=== PATIENT | male | born 1945 | race Caucasian/White ===

== ENCOUNTER 2017-06-05 12:16 | Inpatient (IN) | payer MEDICARE, BC ==
[2017-06-05] MEDS ORDERED: Ondansetron 4 MG Tab.DIS PO PRN (13:03)
[2017-06-05] MEDS ORDERED: cefTRIAXone 1 GM in Sodium Chloride 0.9% 100 ML IV SCH (13:15)
[2017-06-05] MEDS ORDERED: Sodium Chloride 0.9% 10 ML Syringe FLUSH PRN (13:30)
[2017-06-05] MEDS: Sodium Chloride 0.9% 1,000 ML IV SCH ×2 (13:32→21:28)
[2017-06-05] MEDS: Ondansetron 4 MG/2 ML SDV IVPUSH PRN ×2 (13:33→17:43)
[2017-06-05] MEDS: cefTRIAXone 1,000 MG VIAL IV SCH (14:06)
[2017-06-05] MEDS: Insulin Detemir 100 Units/ML 3 ML Pen SUBCUT SCH (15:12)
--- NOTE | 2017-06-05 17:45 | PCM.HP ---
H&P History of Present Illness - General Date of Service: 06/05/17 Admit Problem/Dx: Admission Diagnosis/Problem Admission Diagnosis/Problem Pyelonephritis Source of Information: Patient, Family History Limitations: Reports: Other (mildly confused) - History of Present Illness Initial Comments - Free Text/Narative: this is a 72-year-old male patient that his says he is just not felt right for the last month. He does have a history of urinary incontinence but today he started having fevers, chills, left back pain and confusion. Is brought to the clinic and found to have positive urine pyelonephritis. He has issue diabetes, hypertension and is sent here for admission. She says of vomiting but no diarrhea. He has no abdominal pain, dysuria, pyuria, hematuria. He has some a little bit rhinorrheaof cough but no shortness of breath. - Related Data Allergies/Adverse Reactions: Allergies Allergy/AdvReac Type Severity Reaction Status Date / Time No Known Allergies Allergy Verified 06/05/17 13:10 Home Medications: Home Meds Ascorbate Calcium [Vitamin C] 500 mg PO DAILY 06/05/17 [History] Aspirin [Ecotrin] 325 mg PO DAILY 06/05/17 [History] Cholecalciferol (Vitamin D3) [Vitamin D3] 1,000 unit PO DAILY 06/05/17 [History] FLUoxetine [PROzac] 40 mg PO DAILY 06/05/17 [History] Ferrous Sulfate 325 mg PO BID 06/05/17 [History] Insulin Aspart [NovoLOG] 20 unit SUBCUT WITHBREAKFAST 06/05/17 [History] Insulin Aspart [NovoLOG] 30 units SUBCUT WITHDINNER 06/05/17 [History] Insulin Glargine,Hum.Rec.Anlog [Lantus Solostar] 60 units SUBCUT DAILY 06/05/17 [History] Metoprolol Succinate [Toprol XL] 25 mg PO DAILY 06/05/17 [History] Multivitamin [Daily Josee] 1 tab PO DAILY 06/05/17 [History] Oxybutynin [Oxybutynin ER] 10 mg PO DAILY 06/05/17 [History] atorvaSTATin [Lipitor] 40 mg PO DAILY 06/05/17 [History] buPROPion HCl [Wellbutrin Xl] 150 mg PO DAILY 06/05/17 [History] metFORMIN [Glucophage] 1,000 mg PO BID 06/05/17 [History] rOPINIRole [Requip] 2 mg PO BEDTIME 06/05/17 [History] Past Medical History HEENT History: Reports: None Cardiovascular History: Reports: Bypass, Hypertension Genitourinary History: Reports: Pyelonephritis, UTI, Recurrent Musculoskeletal History: Reports: Other (See Below) Other Musculoskeletal History: Shakiness Endocrine/Metabolic History: Reports: Diabetes, Type I - Past Surgical History Cardiovascular Surgical History: Reports: Coronary Artery Bypass Male Surgical History: Reports: Circumcision Social & Family History - Family History Family Medical History: Noncontributory - Tobacco Use Smoking Status *Q: Never Smoker Second Hand Smoke Exposure: No - Alcohol Use Days Per Week of Alcohol Use: 1 Number of Drinks Per Day: 1 Total Drinks Per Week: 1 - Recreational Drug Use Recreational Drug Use: No H&P Review of Systems - Review of Systems: Review Of Systems: See Below General: Reports: Fever, Chills, Malaise, Weakness, Fatigue. Denies: Weight Gain HEENT: Reports: Rhinitis, Post Nasal Drip. Denies: Ear Pain, Sinus Congestion, Sore Throat, Vertigo, Visual Changes Pulmonary: Reports: Cough. Denies: Shortness of Breath, Sputum, Hemoptysis Cardiovascular: Reports: No Symptoms Gastrointestinal: Reports: Nausea, Vomiting Genitourinary: Reports: Incontinence Musculoskeletal: Reports: No Symptoms Skin: Reports: No Symptoms Psychiatric: Reports: No Symptoms Neurological: Reports: No Symptoms Hematologic/Lymphatic: Reports: No Symptoms Immunologic: Reports: No Symptoms Exam - Exam Exam: See Below - Vital Signs Vital Signs: Last Vital Signs Temp 100 F 06/05/17 15:35 Pulse 88 06/05/17 15:35 Resp 18 06/05/17 15:35 BP 137/82 06/05/17 15:35 Pulse Ox 93 L 06/05/17 15:35 Weight: 301 lb 1.6 oz - Exam General: Alert, Cooperative. No: Oriented, Mild Distress HEENT: Hearing Intact, Mucosa Moist & Ensign, Posterior Pharynx Clear, Pupils Reactive, TMs Clear Neck: Supple, Trachea Midline. No: JVD Lungs: Clear to Auscultation, Normal Respiratory Effort. No: Crackles, Rales, Rhonchi Cardiovascular: Regular Rate, Regular Rhythm, Normal S1, Normal S2. No: Bradycardia, Tachycardia, Systolic Murmur, Diastolic Murmur GI/Abdominal Exam: Normal Bowel Sounds, Soft, Non-Tender, No Organomegaly, No Distention, No Abnormal Bruit, No Mass Back Exam: Normal Inspection, Full Range of Motion. No: CVA Tenderness (R) Extremities: Normal Inspection, Normal Range of Motion, Non-Tender, No Pedal Edema Skin: Warm, Dry, Intact Neurological: Normal Gait Neuro Extensive - Mental Status: Alert, Normal Mood/Affect. No: Oriented x3, Normal Cognition Neuro Extensive - Motor, Sensory, Reflexes: Normal Gait Psychiatric: Alert, Normal Affect, Normal Mood - Patient Data Lab Results Last 24 hrs: Laboratory Results - last 24 hr 06/05/17 06/05/17 Range/Units 14:18 17:19 POC Glucose 291 H 253 H (80-116) mg/dL *Q Meaningful Use (ADM) - VTE *Q VTE Criteria *Q: - Stroke *Q Stroke Criteria *Q: - AMI *Q AMI Criteria *Q: - Problem List (1) Pyelonephritis SNOMED Code(s): 62716716 ICD Code: N12 - TUBULO-INTERSTITIAL NEPHRITIS, NOT SPCF ACUTE OR CHRONIC Status: Acute Current Visit: Yes (2) Kidney disease, chronic, stage III (GFR 30-59 ml/min) SNOMED Code(s): 739434517 ICD Code: N18.3 - CHRONIC KIDNEY DISEASE, STAGE 3 (MODERATE) Status: Acute Current Visit: Yes (3) Diabetes type 2, controlled SNOMED Code(s): 86162138 ICD Code: E11.9 - TYPE 2 DIABETES MELLITUS WITHOUT COMPLICATIONS Status: Acute Current Visit: Yes Qualifiers: Diabetes mellitus complication status: without complication Diabetes mellitus senior living insulin use: with senior living use Qualified Code(s): E11.9 - Type 2 diabetes mellitus without complications; Z79.4 - adjunct faculty 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) use of insulin; Z79.4 - group home (current) use of insulin; Z79.4 - group home ( current) use of insulin; Z79.4 - group home (current) use of insulin Problem List Initiated/Reviewed/Updated: Yes Orders Last 24hrs: Active Orders 24 hr Category Date Time Status Patient Status [ADT] Routine ADT 06/05/17 13:03 Active Patient Status [ADT] Routine ADT 06/05/17 13:30 Active Accu Check [Blood Glucose Check, Bedside] [RC] 0630, Care 06/05/17 13:34 Active 1130,1730,2100 Height and Weight [RC] 06 Care 06/05/17 13:30 Active Intake and Output [RC] 06,14,22 Care 06/05/17 13:31 Active Oxygen Therapy [RC] PRN Care 06/05/17 13:30 Active Up With Assistance [RC] ASDIRECTED Care 06/05/17 13:30 Active VTE/DVT Education [RC] Per Unit Routine Care 06/05/17 13:30 Active Vital Signs [RC] 08,12,16,20,00,04 Care 06/05/17 13:30 Active Consistent Carbohydrate Diet [DIET] Diet 06/05/17 Dinner Active Chest 2V [CR] Routine Exams 06/05/17 13:30 Taken CBC WITH AUTO DIFF [HEME] AM Lab 06/06/17 05:11 Ordered COMPREHENSIVE METABOLIC PN,CMP [CHEM] AM Lab 06/06/17 05:11 Ordered CULTURE BLOOD [BC] Urgent Lab 06/05/17 13:25 Received CULTURE BLOOD [BC] Urgent Lab 06/05/17 13:30 Received Insulin Aspart [NovoLOG] Med 06/05/17 18:00 Active See Protocol SUBCUT TIDMEALS Insulin Detemir [Levemir] Med 06/05/17 13:45 Active 30 unit SUBCUT DAILY Ondansetron [Zofran ODT] Med 06/05/17 13:03 Active 4 mg PO Q4H PRN Ondansetron [Zofran] Med 06/05/17 13:03 Active 4 mg IVPUSH Q4H PRN Sodium Chloride 0.9% [Normal Saline] 1,000 ml Med 06/05/17 13:15 Active IV ASDIRECTED Sodium Chloride 0.9% [Saline Flush] Med 06/05/17 13:30 Active 10 ml FLUSH ASDIRECTED PRN cefTRIAXone [Rocephin] Med 06/05/17 13:15 Active 1,000 mg IV Q24H Blood Culture x2 Reflex Set [OM.PC] Urgent Oth 06/05/17 13:03 Ordered Peripheral IV Insertion Adult [OM.PC] Routine Oth 06/05/17 13:30 Ordered Sequential Compression Device [OM.PC] Per Unit Routine Oth 06/05/17 13:31 Ordered Resuscitation Status Routine Resus Stat 02/09/18 13:30 Ordered Medication Orders Ceftriaxone Sodium (Rocephin) 1,000 mg IV Q24H [facility] Last Admin: 06/05/17 14:06 Dose: 1,000 mg Sodium Chloride (Normal Saline) 1,000 mls @ 125 mls/hr IV ASDIRECTED [facility] Last Admin: 06/05/17 13:32 Dose: 125 mls/hr Insulin Aspart (Novolog) 0 unit SUBCUT TIDMEALS [facility] PRN Reason: Protocol Insulin Detemir (Levemir) 30 unit SUBCUT DAILY [facility] Last Admin: 06/05/17 15:12 Dose: Ondansetron HCl (Zofran) 4 mg IVPUSH Q4H PRN PRN Reason: Nausea/Vomiting Last Admin: 06/05/17 13:33 Dose: 4 mg Ondansetron HCl (Zofran Odt) 4 mg PO Q4H PRN PRN Reason: Nausea/Vomiting Sodium Chloride (Saline Flush) 10 ml FLUSH ASDIRECTED PRN PRN Reason: Keep Vein Open Assessment/Plan Comment:: 1. Admit and he'll be a full code per family. 2.VTE Prophylasis. 3. Rocephin, fluids with daily weights and I's and O's. 4. Sliding scale +30 units of Lantus a day. 5. Reconcile medications. 6 up with assist. 7. ADA diet. 8. Blood cultures 2. 9. Urine culture is done in the clinic and pending. 10. Repeat CBC in the a.m.
[2017-06-05] MEDS: Insulin Aspart 100 Units/ML 3 ML Pen SUBCUT SCH (18:21)
[2017-06-05] MEDS ORDERED: Insulin Aspart 100 Units/ML 3 ML Pen SUBCUT ONE (21:48)
[2017-06-06] MEDS: Sodium Chloride 0.9% 1,000 ML IV SCH ×3 (05:23→20:52)
[2017-06-06] MEDS: Insulin Aspart 100 Units/ML 3 ML Pen SUBCUT SCH ×3 (08:51→17:46)
[2017-06-06] MEDS: Insulin Detemir 100 Units/ML 3 ML Pen SUBCUT SCH (08:52)
--- NOTE | 2017-06-06 09:29 | PCM.PN ---
- General Info Date of Service: 06/06/17 Admission Dx/Problem (Free Text): Patient states he feels better today. He denies fevers, chills, nausea or vomiting. His son says he is not confused. He denies dysuria, pyuria, hematuria , cough, shortness of breath, chest pain. - Patient Data Vitals - Most Recent: Last Vital Signs Temp 98.1 F 06/06/17 02:56 Pulse 80 06/06/17 02:56 Resp 20 06/06/17 02:56 BP 161/67 H 06/06/17 02:56 Pulse Ox 96 06/06/17 02:56 Weight - Most Recent: 303 lb 14.4 oz I&O - Last 24 Hours: Intake & Output 06/05/17 06/06/17 06/06/17 22:59 06:59 14:59 Intake Total 1250 1110 Output Total 300 725 Balance 950 385 Lab Results Last 24 Hours: Laboratory Results - last 24 hr 06/05/17 06/05/17 06/05/17 Range/Units 14:18 17:19 21:25 WBC (4.5-12.0) X10-3/uL RBC (4.30-5.75) x10(6)uL Hgb (11.5-15.5) g/dL Hct (30.0-51.3) % MCV (80-96) fL MCH (27.7-33.6) pg MCHC (32.2-35.4) g/dL RDW (11.5-15.5) % Plt Count (125-369) X10(3)uL MPV (7.4-10.4) fL Neut % (Auto) (46-82) % Lymph % (Auto) (13-37) % [place] % (Auto) (4-12) % Eos % (Auto) (1.0-5.0) % Baso % (Auto) (0-2) % Neut # (Auto) (1.6-8.3) # Lymph # (Auto) (0.6-5.0) # [place] # (Auto) (0.0-1.3) # Eos # (Auto) (0.0-0.8) # Baso # (Auto) (0.0-0.2) # Sodium (135-145) mmol/L Potassium (3.5-5.3) mmol/L Chloride (100-110) mmol/L Carbon Dioxide (21-32) mmol/L BUN (7-18) mg/dL Creatinine (0.70-1.30) mg/dL Est Cr Clr Drug Dosing mL/min Estimated GFR (MDRD) (>60) BUN/Creatinine Ratio (9-20) Glucose (80-116) mg/dL POC Glucose 291 H 253 H 280 H (80-116) mg/dL Calcium (8.6-10.2) mg/dL Total Bilirubin (0.1-1.3) mg/dL AST (5-25) IU/L ALT (12-36) U/L Alkaline Phosphatase (56-112) IU/L Total Protein (6.0-8.0) g/dL Albumin (3.2-4.6) g/dL Globulin g/dL Albumin/Globulin Ratio 06/06/17 06/06/17 06/06/17 Range/Units 06:25 06:25 07:40 WBC 13.3 H (4.5-12.0) X10-3/uL RBC 3.75 L (4.30-5.75) x10(6)uL Hgb 11.4 L (11.5-15.5) g/dL Hct 34.4 (30.0-51.3) % MCV 91.7 (80-96) fL MCH 30.5 (27.7-33.6) pg MCHC 33.3 (32.2-35.4) g/dL RDW 13.9 (11.5-15.5) % Plt Count 187 (125-369) X10(3)uL MPV 9.4 (7.4-10.4) fL Neut % (Auto) 83.4 H (46-82) % Lymph % (Auto) 8.2 L (13-37) % [place] % (Auto) 7.1 (4-12) % Eos % (Auto) 1 (1.0-5.0) % Baso % (Auto) 0 (0-2) % Neut # (Auto) 11.1 H (1.6-8.3) # Lymph # (Auto) 1.1 (0.6-5.0) # [place] # (Auto) 0.9 (0.0-1.3) # Eos # (Auto) 0.1 (0.0-0.8) # Baso # (Auto) 0.1 (0.0-0.2) # Sodium 137 (135-145) mmol/L Potassium 4.2 (3.5-5.3) mmol/L Chloride 103 (100-110) mmol/L Carbon Dioxide 26 (21-32) mmol/L BUN 24 H (7-18) mg/dL Creatinine 1.5 H (0.70-1.30) mg/dL Est Cr Clr Drug Dosing 49.57 mL/min Estimated GFR (MDRD) 46 L (>60) BUN/Creatinine Ratio 16.0 (9-20) Glucose 252 H (80-116) mg/dL POC Glucose 239 H (80-116) mg/dL Calcium 8.4 L (8.6-10.2) mg/dL Total Bilirubin 0.9 (0.1-1.3) mg/dL AST 14 (5-25) IU/L ALT 18 (12-36) U/L Alkaline Phosphatase 66 (56-112) IU/L Total Protein 6.2 (6.0-8.0) g/dL Albumin 2.5 L (3.2-4.6) g/dL Globulin 3.7 g/dL Albumin/Globulin Ratio 0.7 Med Orders - Current: Current Medications Ceftriaxone Sodium (Rocephin) 1,000 mg IV Q24H [facility] Last Admin: 06/05/17 14:06 Dose: 1,000 mg Sodium Chloride (Normal Saline) 1,000 mls @ 125 mls/hr IV ASDIRECTED [facility] [place] Last Admin: 06/06/17 05:23 Dose: 125 mls/hr Insulin Aspart (Novolog) 0 unit SUBCUT TIDMEALS [facility] [place] PRN Reason: Protocol Last Admin: 06/06/17 08:51 Dose: 6 unit Insulin Detemir (Levemir) 30 unit SUBCUT DAILY [facility] [place] Last Admin: 06/06/17 08:52 Dose: 30 unit Ondansetron HCl (Zofran) 4 mg IVPUSH Q4H PRN PRN Reason: Nausea/Vomiting Last Admin: 06/05/17 17:43 Dose: 4 mg Ondansetron HCl (Zofran Odt) 4 mg PO Q4H PRN PRN Reason: Nausea/Vomiting Sodium Chloride (Saline Flush) 10 ml FLUSH ASDIRECTED PRN PRN Reason: Keep Vein Open Discontinued Medications Insulin Aspart (Novolog) 0 unit SUBCUT ONETIME ONE Stop: 06/05/17 21:49 Last Admin: 06/05/17 22:11 Dose: 6 units - Exam General: Alert, Oriented, Cooperative Neck: Supple Lungs: Clear to Auscultation, Normal Respiratory Effort GI/Abdominal Exam: Normal Bowel Sounds, Soft, Non-Tender Skin: Dry, Intact Psy/Mental Status: Alert, Normal Affect, Normal Mood - Problem List & Annotations (1) Pyelonephritis SNOMED Code(s): 19556175 Code(s): N12 - TUBULO-INTERSTITIAL NEPHRITIS, NOT SPCF ACUTE OR CHRONIC Status: Acute Current Visit: Yes (2) Kidney disease, chronic, stage III (GFR 30-59 ml/min) SNOMED Code(s): 482113997 Code(s): N18.3 - CHRONIC KIDNEY DISEASE, STAGE 3 (MODERATE) Status: Acute Current Visit: Yes (3) Diabetes type 2, controlled SNOMED Code(s): 93175668 Code(s): E11.9 - TYPE 2 DIABETES MELLITUS WITHOUT COMPLICATIONS Status: Acute Current Visit: Yes Qualifiers: Diabetes mellitus complication status: without complication Diabetes mellitus intermediate frame tender insulin use: with intermediate frame tender use Qualified Code(s): E11.9 - Type 2 diabetes mellitus without complications; 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.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; Z79.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; Z79.4 - longterm ( current) use of insulin; Z79.4 - longterm (current) use of insulin (4) Hyponatremia SNOMED Code(s): 60393812 Code(s): E87.1 - HYPO-OSMOLALITY AND HYPONATREMIA Status: Acute Current Visit: Yes (5) Palliative care status SNOMED Code(s): 996865689 Code(s): Z51.5 - ENCOUNTER FOR PALLIATIVE CARE Status: Acute Current Visit: Yes - Problem List Review Problem List Initiated/Reviewed/Updated: Yes - My Orders Last 24 Hours: My Active Orders 06/05/17 13:03 Patient Status [ADT] Routine Ondansetron [Zofran ODT] 4 mg PO Q4H PRN Ondansetron [Zofran] 4 mg IVPUSH Q4H PRN Blood Culture x2 Reflex Set [OM.PC] Urgent 06/05/17 13:15 Sodium Chloride 0.9% [Normal Saline] 1,000 ml IV ASDIRECTED cefTRIAXone [Rocephin] 1,000 mg IV Q24H 06/05/17 13:25 CULTURE BLOOD [BC] Urgent 06/05/17 13:30 Patient Status [ADT] Routine Height and Weight [RC] 06 Oxygen Therapy [RC] PRN Up With Assistance [RC] ASDIRECTED VTE/DVT Education [RC] Per Unit Routine Vital Signs [RC] 08,12,16,20,00,04 Chest 2V [CR] Routine CULTURE BLOOD [BC] Urgent Sodium Chloride 0.9% [Saline Flush] 10 ml FLUSH ASDIRECTED PRN Peripheral IV Insertion Adult [OM.PC] Routine Resuscitation Status Routine 06/05/17 13:31 Intake and Output [RC] 06,14,22 Sequential Compression Device [OM.PC] Per Unit Routine 06/05/17 13:34 Accu Check [Blood Glucose Check, Bedside] [RC] 0730,1130,1730,2100 06/05/17 13:45 Insulin Detemir [Levemir] 30 unit SUBCUT DAILY 06/05/17 18:00 Insulin Aspart [NovoLOG] See Protocol SUBCUT TIDMEALS 06/05/17 Dinner Consistent Carbohydrate Diet [DIET] - Plan Plan:: 1. Sodium in the clinic yesterday was 129 and that's corrected today. 2. Continue IV fluids and IV antibiotics. 3. I check the urine culture at the clinic and is not done yet. 4. Ambulate with assist. 5. Increase his Lantus to his full dose and continue the sliding scale. 6. Repeat panel 8 and CBC in the a.m.
[2017-06-06] MEDS ORDERED: Insulin Detemir 100 Units/ML 3 ML Pen SUBCUT ONE (10:45)
[2017-06-06] MEDS: Cholecalciferol (Vitamin D3) 1,000 Unit Tab PO SCH (11:38)
[2017-06-06] MEDS: Ferrous Sulfate 325 MG Tab PO SCH ×2 (11:38→20:58)
[2017-06-06] MEDS: buPROPion 150 MG Tab.ER PO SCH (11:39)
[2017-06-06] MEDS: Multivitamin Tab PO SCH (11:39)
[2017-06-06] MEDS: Aspirin 325 MG Tab.EC PO SCH (11:39)
[2017-06-06] MEDS: Oxybutynin 5 MG Tab.ER PO SCH (11:40)
[2017-06-06] MEDS: FLUoxetine 20 MG Cap PO SCH (11:40)
[2017-06-06] MEDS: atorvaSTATin 40 MG Tab PO SCH (11:40)
[2017-06-06] MEDS: Metoprolol Succinate 25 MG Tab.ER PO SCH (11:41)
[2017-06-06] MEDS: Ascorbic Acid 500 MG Tab PO SCH (11:42)
[2017-06-06] MEDS: cefTRIAXone 1,000 MG VIAL IV SCH (13:24)
[2017-06-06] MEDS: rOPINIRole 1 MG Tab PO SCH (20:58)
[2017-06-07] MEDS: Sodium Chloride 0.9% 1,000 ML IV SCH (04:54)
--- NOTE | 2017-06-07 08:12 | PCM.PN ---
- General Info Date of Service: 06/07/17 Admission Dx/Problem (Free Text): Patient without complaints. He denies dysuria, pyuria, hematuria, fevers, chills , nausea, abdominal pain, chest pain or shortness of breath. - Patient Data Vitals - Most Recent: Last Vital Signs Temp 98.1 F 06/07/17 03:13 Pulse 60 06/07/17 03:13 Resp 20 06/07/17 03:13 BP 149/60 H 06/07/17 03:13 Pulse Ox 97 06/07/17 03:13 Weight - Most Recent: 306 lb 8 oz I&O - Last 24 Hours: Intake & Output 06/06/17 06/07/17 06/07/17 22:59 06:59 14:59 Intake Total 1355 950 Output Total 350 Balance 1355 600 Lab Results Last 24 Hours: Laboratory Results - last 24 hr 06/06/17 06/06/17 06/06/17 Range/Units 11:34 17:44 20:56 WBC (4.5-12.0) X10-3/uL RBC (4.30-5.75) x10(6)uL Hgb (11.5-15.5) g/dL Hct (30.0-51.3) % MCV (80-96) fL MCH (27.7-33.6) pg MCHC (32.2-35.4) g/dL RDW (11.5-15.5) % Plt Count (125-369) X10(3)uL MPV (7.4-10.4) fL Neut % (Auto) (46-82) % Lymph % (Auto) (13-37) % [place] % (Auto) (4-12) % Eos % (Auto) (1.0-5.0) % Baso % (Auto) (0-2) % Neut # (Auto) (1.6-8.3) # Lymph # (Auto) (0.6-5.0) # [place] # (Auto) (0.0-1.3) # Eos # (Auto) (0.0-0.8) # Baso # (Auto) (0.0-0.2) # Sodium (135-145) mmol/L Potassium (3.5-5.3) mmol/L Chloride (100-110) mmol/L Carbon Dioxide (21-32) mmol/L BUN (7-18) mg/dL Creatinine (0.70-1.30) mg/dL Est Cr Clr Drug Dosing mL/min Estimated GFR (MDRD) (>60) BUN/Creatinine Ratio (9-20) Glucose (80-116) mg/dL POC Glucose 287 H 203 H D 187 H (80-116) mg/dL Calcium (8.6-10.2) mg/dL 06/07/17 06/07/17 06/07/17 Range/Units 06:12 06:12 06:56 WBC 9.0 (4.5-12.0) X10-3/uL RBC 3.66 L (4.30-5.75) x10(6)uL Hgb 11.2 L (11.5-15.5) g/dL Hct 34.0 (30.0-51.3) % MCV 93.1 (80-96) fL MCH 30.7 (27.7-33.6) pg MCHC 32.9 (32.2-35.4) g/dL RDW 14.2 (11.5-15.5) % Plt Count 194 (125-369) X10(3)uL MPV 9.9 (7.4-10.4) fL Neut % (Auto) 74.8 (46-82) % Lymph % (Auto) 11.2 L (13-37) % [place] % (Auto) 7.3 (4-12) % Eos % (Auto) 6 H (1.0-5.0) % Baso % (Auto) 1 (0-2) % Neut # (Auto) 6.7 (1.6-8.3) # Lymph # (Auto) 1.0 (0.6-5.0) # [place] # (Auto) 0.7 (0.0-1.3) # Eos # (Auto) 0.5 (0.0-0.8) # Baso # (Auto) 0.1 (0.0-0.2) # Sodium 139 (135-145) mmol/L Potassium 4.1 (3.5-5.3) mmol/L Chloride 106 (100-110) mmol/L Carbon Dioxide 24 (21-32) mmol/L BUN 21 H (7-18) mg/dL Creatinine 1.3 (0.70-1.30) mg/dL Est Cr Clr Drug Dosing 57.19 mL/min Estimated GFR (MDRD) 54 L (>60) BUN/Creatinine Ratio 16.2 (9-20) Glucose 187 H (80-116) mg/dL POC Glucose 177 H (80-116) mg/dL Calcium 8.1 L (8.6-10.2) mg/dL Darian Results Last 24 Hours: Microbiology 06/05/17 13:30 Aerobic Blood Culture - Preliminary Blood - Venous - Lab Draw NO GROWTH AFTER 1 DAY Anaerobic Blood Culture - Preliminary NO GROWTH AFTER 1 DAY 06/05/17 13:25 Aerobic Blood Culture - Preliminary Blood - Venous NO GROWTH AFTER 1 DAY Anaerobic Blood Culture - Preliminary NO GROWTH AFTER 1 DAY Med Orders - Current: Current Medications Ascorbic Acid (Vitamin C) 500 mg PO DAILY [facility] Last Admin: 06/06/17 11:42 Dose: 500 mg Aspirin (Ecotrin) 325 mg PO DAILY [facility] Last Admin: 06/06/17 11:39 Dose: 325 mg Atorvastatin Calcium (Lipitor) 40 mg PO DAILY [facility] Last Admin: 06/06/17 11:40 Dose: 40 mg Bupropion HCl (Wellbutrin Xl) 150 mg PO DAILY [facility] Last Admin: 06/06/17 11:39 Dose: 150 mg Ceftriaxone Sodium (Rocephin) 1,000 mg IV Q24H [facility] Last Admin: 06/06/17 13:24 Dose: 1,000 mg Cholecalciferol (Vitamin D3) 1,000 units PO DAILY [facility] Last Admin: 06/06/17 11:38 Dose: 1,000 units Ferrous Sulfate (Ferrous Sulfate) 325 mg PO BID [facility] Last Admin: 06/06/17 20:58 Dose: 325 mg Fluoxetine HCl (Prozac) 40 mg PO DAILY [facility] Last Admin: 06/06/17 11:40 Dose: 40 mg Insulin Aspart (Novolog) 0 unit SUBCUT TIDMEALS [facility] PRN Reason: Protocol Last Admin: 06/06/17 17:46 Dose: 6 unit Insulin Detemir (Levemir) 60 unit SUBCUT DAILY [facility] Metoprolol Succinate (Toprol Xl) 25 mg PO DAILY [facility] Last Admin: 06/06/17 11:41 Dose: 25 mg Multivitamins/Minerals/Vitamin C (Tab-A-Josee) 1 tab PO DAILY [facility] Last Admin: 06/06/17 11:39 Dose: 1 tab Ondansetron HCl (Zofran) 4 mg IVPUSH Q4H PRN PRN Reason: Nausea/Vomiting Last Admin: 06/05/17 17:43 Dose: 4 mg Ondansetron HCl (Zofran Odt) 4 mg PO Q4H PRN PRN Reason: Nausea/Vomiting Oxybutynin Chloride (Oxybutynin Er) 10 mg PO DAILY [facility] Last Admin: 06/06/17 11:40 Dose: 10 mg Ropinirole HCl (Requip) 2 mg PO BEDTIME [facility] Last Admin: 06/06/17 20:58 Dose: 2 mg Sodium Chloride (Saline Flush) 10 ml FLUSH ASDIRECTED PRN PRN Reason: Keep Vein Open Discontinued Medications Sodium Chloride (Normal Saline) 1,000 mls @ 125 mls/hr IV ASDIRECTED [facility] Last Admin: 06/07/17 04:54 Dose: 125 mls/hr Insulin Aspart (Novolog) 0 unit SUBCUT ONETIME ONE Stop: 06/05/17 21:49 Last Admin: 06/05/17 22:11 Dose: 6 units Insulin Detemir (Levemir) 30 unit SUBCUT DAILY [facility] Last Admin: 06/06/17 08:52 Dose: 30 unit Insulin Detemir (Levemir) 30 unit SUBCUT ONETIME ONE Stop: 06/06/17 10:46 Last Admin: 06/06/17 11:42 Dose: 30 units Non-Formulary Medication (Insulin Glargine,Hum.Rec.Anlog [Lantus Solostar]) 60 units SUBCUT DAILY [facility] - Exam General: Alert, Oriented, Cooperative Lungs: Clear to Auscultation, Normal Respiratory Effort Cardiovascular: Regular Rate, Regular Rhythm, No Murmurs Back Exam: No: CVA Tenderness (R) - Problem List & Annotations (1) Pyelonephritis SNOMED Code(s): 56128329 Code(s): N12 - TUBULO-INTERSTITIAL NEPHRITIS, NOT SPCF ACUTE OR CHRONIC Status: Acute Current Visit: Yes (2) Kidney disease, chronic, stage III (GFR 30-59 ml/min) SNOMED Code(s): 753386556 Code(s): N18.3 - CHRONIC KIDNEY DISEASE, STAGE 3 (MODERATE) Status: Acute Current Visit: Yes (3) Diabetes type 2, controlled SNOMED Code(s): 42288237 Code(s): E11.9 - TYPE 2 DIABETES MELLITUS WITHOUT COMPLICATIONS Status: Acute Current Visit: Yes Qualifiers: Diabetes mellitus complication status: without complication Diabetes mellitus snf insulin use: with laborer marine terminal 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 Qualified Code(s): E11.9 - Type 2 diabetes mellitus without complications; Z79.4 - termite control technician (current) use of insulin; Z79.4 - termite control technician (current) use of insulin; Z79.4 - termite control technician ( current) use of insulin; Z79.4 - skilled nursing (current) use of insulin (4) Hyponatremia SNOMED Code(s): 33814018 Code(s): E87.1 - HYPO-OSMOLALITY AND HYPONATREMIA Status: Acute Current Visit: Yes (5) Palliative care status SNOMED Code(s): 822034769 Code(s): Z51.5 - ENCOUNTER FOR PALLIATIVE CARE Status: Acute Current Visit: Yes - Problem List Review Problem List Initiated/Reviewed/Updated: Yes - My Orders Last 24 Hours: My Active Orders 06/06/17 09:35 Ambulate [RC] 09,13,17,21 06/06/17 11:00 Ascorbic Acid [Vitamin C] 500 mg PO DAILY Aspirin [Ecotrin] 325 mg PO DAILY Cholecalciferol (Vitamin D3) [Vitamin D3] 1,000 units PO DAILY FLUoxetine [PROzac] 40 mg PO DAILY Ferrous Sulfate 325 mg PO BID Metoprolol Succinate [Toprol XL] 25 mg PO DAILY Multivitamins [Tab-A-Josee] 1 tab PO DAILY Oxybutynin [Oxybutynin ER] 10 mg PO DAILY atorvaSTATin [Lipitor] 40 mg PO DAILY buPROPion [Wellbutrin XL] 150 mg PO DAILY 06/06/17 21:00 rOPINIRole [Requip] 2 mg PO BEDTIME 06/07/17 08:10 Convert IV to Saline Lock [OM.PC] Routine 06/07/17 09:00 Insulin Detemir [Levemir] 60 unit SUBCUT DAILY - Plan Plan:: 1. DC IV fluids and saline lock IV. 2. Vitals every shift. 3. [facility] was contacted. Urine has insufficient growth. They will fax report later today.
[2017-06-07] MEDS: Ferrous Sulfate 325 MG Tab PO SCH ×2 (08:17→21:00)
[2017-06-07] MEDS: Oxybutynin 5 MG Tab.ER PO SCH (08:19)
[2017-06-07] MEDS: Metoprolol Succinate 25 MG Tab.ER PO SCH (08:21)
[2017-06-07] MEDS: FLUoxetine 20 MG Cap PO SCH (08:22)
[2017-06-07] MEDS: buPROPion 150 MG Tab.ER PO SCH (08:22)
[2017-06-07] MEDS: atorvaSTATin 40 MG Tab PO SCH (08:23)
[2017-06-07] MEDS: Cholecalciferol (Vitamin D3) 1,000 Unit Tab PO SCH (08:23)
[2017-06-07] MEDS: Aspirin 325 MG Tab.EC PO SCH (08:23)
[2017-06-07] MEDS: Multivitamin Tab PO SCH (08:23)
[2017-06-07] MEDS: Ascorbic Acid 500 MG Tab PO SCH (08:24)
[2017-06-07] MEDS: Insulin Detemir 100 Units/ML 3 ML Pen SUBCUT SCH (08:28)
[2017-06-07] MEDS: Insulin Aspart 100 Units/ML 3 ML Pen SUBCUT SCH ×3 (08:28→18:14)
[2017-06-07] MEDS ORDERED: INSULIN GLARGINE HUM REC ANLOG 60 UNIT SUBCUT SCH (09:00)
[2017-06-07] MEDS ORDERED: [UNRECOGNIZED DRUG - OTHER] SUBCUT SCH (09:00)
[2017-06-07] MEDS: cefTRIAXone 1,000 MG VIAL IV SCH (12:56)
[2017-06-07] MEDS: rOPINIRole 1 MG Tab PO SCH (21:00)
[2017-06-08] MEDS: Insulin Aspart 100 Units/ML 3 ML Pen SUBCUT SCH (08:16)
[2017-06-08] MEDS: Insulin Detemir 100 Units/ML 3 ML Pen SUBCUT SCH (08:20)
[2017-06-08] MEDS: Aspirin 325 MG Tab.EC PO SCH (08:24)
[2017-06-08] MEDS: Ferrous Sulfate 325 MG Tab PO SCH (08:24)
[2017-06-08] MEDS: atorvaSTATin 40 MG Tab PO SCH (08:25)
[2017-06-08] MEDS: Multivitamin Tab PO SCH (08:26)
[2017-06-08] MEDS: FLUoxetine 20 MG Cap PO SCH (08:26)
[2017-06-08] MEDS: Metoprolol Succinate 25 MG Tab.ER PO SCH (08:26)
[2017-06-08] MEDS: Oxybutynin 5 MG Tab.ER PO SCH (08:27)
[2017-06-08] MEDS: Ascorbic Acid 500 MG Tab PO SCH (08:28)
[2017-06-08] MEDS: Cholecalciferol (Vitamin D3) 1,000 Unit Tab PO SCH (08:28)
[2017-06-08] MEDS: buPROPion 150 MG Tab.ER PO SCH (08:28)
--- NOTE | 2017-06-08 09:07 | PCM.PN ---
- General Info Date of Service: 06/08/17 Admission Dx/Problem (Free Text): Patient is without complaints. He denies dysuria, pyuria, hematuria, fevers, chills, cough. - Patient Data Vitals - Most Recent: Last Vital Signs Temp 98.2 F 06/08/17 04:00 Pulse 63 06/08/17 08:26 Resp 18 06/08/17 04:00 BP 162/78 H 06/08/17 08:26 Pulse Ox 97 06/08/17 04:00 Weight - Most Recent: 306 lb 8 oz I&O - Last 24 Hours: Intake & Output 06/07/17 06/08/17 06/08/17 22:59 06:59 14:59 Intake Total 200 100 Balance 200 100 Lab Results Last 24 Hours: Laboratory Results - last 24 hr 06/07/17 06/07/17 06/07/17 Range/Units 11:07 17:26 21:42 POC Glucose 248 H 213 H 289 H (80-116) mg/dL 06/08/17 Range/Units 07:43 POC Glucose 190 H D (80-116) mg/dL Darian Results Last 24 Hours: Microbiology 06/05/17 13:30 Aerobic Blood Culture - Preliminary Blood - Venous - Lab Draw NO GROWTH AFTER 2 DAYS Anaerobic Blood Culture - Preliminary NO GROWTH AFTER 2 DAYS 06/05/17 13:25 Aerobic Blood Culture - Preliminary Blood - Venous NO GROWTH AFTER 2 DAYS Anaerobic Blood Culture - Preliminary NO GROWTH AFTER 2 DAYS Med Orders - Current: Current Medications Ascorbic Acid (Vitamin C) 500 mg PO DAILY [facility] Last Admin: 06/08/17 08:28 Dose: 500 mg Aspirin (Ecotrin) 325 mg PO DAILY [facility] Last Admin: 06/08/17 08:24 Dose: 325 mg Atorvastatin Calcium (Lipitor) 40 mg PO DAILY [facility] Last Admin: 06/08/17 08:25 Dose: 40 mg Bupropion HCl (Wellbutrin Xl) 150 mg PO DAILY [facility] Last Admin: 06/08/17 08:28 Dose: 150 mg Ceftriaxone Sodium (Rocephin) 1,000 mg IV Q24H [facility] Last Admin: 06/07/17 12:56 Dose: 1,000 mg Cholecalciferol (Vitamin D3) 1,000 units PO DAILY [facility] Last Admin: 06/08/17 08:28 Dose: 1,000 units Ferrous Sulfate (Ferrous Sulfate) 325 mg PO BID [facility] Last Admin: 06/08/17 08:24 Dose: 325 mg Fluoxetine HCl (Prozac) 40 mg PO DAILY [facility] Last Admin: 06/08/17 08:26 Dose: 40 mg Insulin Aspart (Novolog) 0 unit SUBCUT TIDMEALS [facility] PRN Reason: Protocol Last Admin: 06/08/17 08:16 Dose: 3 unit Insulin Detemir (Levemir) 60 unit SUBCUT DAILY [facility] Last Admin: 06/08/17 08:20 Dose: 60 unit Metoprolol Succinate (Toprol Xl) 25 mg PO DAILY [facility] Last Admin: 06/08/17 08:26 Dose: 25 mg Multivitamins/Minerals/Vitamin C (Tab-A-Josee) 1 tab PO DAILY [facility] Last Admin: 06/08/17 08:26 Dose: 1 tab Ondansetron HCl (Zofran) 4 mg IVPUSH Q4H PRN PRN Reason: Nausea/Vomiting Last Admin: 06/05/17 17:43 Dose: 4 mg Ondansetron HCl (Zofran Odt) 4 mg PO Q4H PRN PRN Reason: Nausea/Vomiting Oxybutynin Chloride (Oxybutynin Er) 10 mg PO DAILY [facility] Last Admin: 06/08/17 08:27 Dose: 10 mg Ropinirole HCl (Requip) 2 mg PO BEDTIME [facility] Last Admin: 06/07/17 21:00 Dose: 2 mg Sodium Chloride (Saline Flush) 10 ml FLUSH ASDIRECTED PRN PRN Reason: Keep Vein Open Last Admin: 06/07/17 12:56 Dose: 10 ml Discontinued Medications Sodium Chloride (Normal Saline) 1,000 mls @ 125 mls/hr IV ASDIRECTED [facility] Last Admin: 06/07/17 04:54 Dose: 125 mls/hr Insulin Aspart (Novolog) 0 unit SUBCUT ONETIME ONE Stop: 06/05/17 21:49 Last Admin: 06/05/17 22:11 Dose: 6 units Insulin Detemir (Levemir) 30 unit SUBCUT DAILY [facility] Last Admin: 06/06/17 08:52 Dose: 30 unit Insulin Detemir (Levemir) 30 unit SUBCUT ONETIME ONE Stop: 06/06/17 10:46 Last Admin: 06/06/17 11:42 Dose: 30 units Non-Formulary Medication (Insulin Glargine,Hum.Rec.Anlog [Lantus Solostar]) 60 units SUBCUT DAILY [facility] - Exam General: Alert, Oriented Lungs: Clear to Auscultation, Normal Respiratory Effort Cardiovascular: Regular Rate, Regular Rhythm, No Murmurs - Problem List & Annotations (1) Pyelonephritis SNOMED Code(s): 93427430 Code(s): N12 - TUBULO-INTERSTITIAL NEPHRITIS, NOT SPCF ACUTE OR CHRONIC Status: Acute Current Visit: Yes (2) Kidney disease, chronic, stage III (GFR 30-59 ml/min) SNOMED Code(s): 996323678 Code(s): N18.3 - CHRONIC KIDNEY DISEASE, STAGE 3 (MODERATE) Status: Acute Current Visit: Yes (3) Diabetes type 2, controlled SNOMED Code(s): 98848789 Code(s): E11.9 - TYPE 2 DIABETES MELLITUS WITHOUT COMPLICATIONS Status: Acute Current Visit: Yes Qualifiers: Diabetes mellitus complication status: without complication Diabetes mellitus fpc insulin use: with fpc use Qualified Code(s): E11.9 - Type 2 diabetes mellitus without complications; Z79.4 - care home (current) use of insulin; Z79.4 - care home (current) use of insulin; Z79.4 - terminal operator ( current) use of insulin; Z79.4 - terminal operator (current) use of insulin (4) Hyponatremia SNOMED Code(s): 08032073 Code(s): E87.1 - HYPO-OSMOLALITY AND HYPONATREMIA Status: Acute Current Visit: Yes (5) Palliative care status SNOMED Code(s): 155679289 Code(s): Z51.5 - ENCOUNTER FOR PALLIATIVE CARE Status: Acute Current Visit: Yes - Problem List Review Problem List Initiated/Reviewed/Updated: Yes - My Orders Last 24 Hours: My Active Orders 06/07/17 08:10 Convert IV to Saline Lock [OM.PC] Routine 06/07/17 09:00 Insulin Detemir [Levemir] 60 unit SUBCUT DAILY 06/07/17 15:30 Peripheral IV Discontinue [OM.PC] Routine - Plan Plan:: 1. Urine culture Escherichia coli sensitive to Cipro. Discharge him on 500 mg Cipro twice a day for 11 days. 2. Because he is a male with a pyelonephritis. I will order renal ultrasound before he leaves so Dr. Joel as of information.
--- NOTE | 2017-06-08 09:16 | PCM.DCSUM1 ---
Discharge Summary - Hospital Course Free Text/Narrative:: Hospital course-she was admitted and put on Rocephin. Blood sugars running high so put him on a sliding scale and half of his normal long-acting which is 30 units of Levemir since we do not have Lantus. Blood sugars remained high and he had a fever overnight. We increase his Levemir to 60 units A day. Next day the patient was feeling much better. His nausea and vomiting were gone and his fevers and chills are gone. Patient started ambulate and his coordination watch improved. He never had a dysuria, pyuria or hematuria. He has a history of incontinence. Blood sugars went to the 100s but occasional 300. His fevers, chills nausea vomiting again were gone. He grew Escherichia coli. On the day of discharge it was sensitive to Cipro resistant to Bactrim and ampicillin. I will do a renal ultrasound before discharge and placement Cipro 500 mg twice a day for 11 days which should make 14 days of therapy. He' ll follow with Dr. Joel for his renal ultrasound and recheck. Brief History: this is a 72-year-old male patient that his says he is just not felt right for the last month. He does have a history of urinary incontinence but today he started having fevers, chills, left back pain and confusion. Is brought to the clinic and found to have positive urine pyelonephritis. He has issue diabetes, hypertension and is sent here for admission. She says of vomiting but no diarrhea. He has no abdominal pain, dysuria, pyuria, hematuria. He has some a little bit rhinorrheaof cough but no shortness of breath. - Discharge Data Discharge Date: 06/08/17 Discharge Disposition: Home, Self-Care 01 Condition: Good - Discharge Diagnosis/Problem(s) (1) Pyelonephritis SNOMED Code(s): 05285478 ICD Code: N12 - TUBULO-INTERSTITIAL NEPHRITIS, NOT SPCF ACUTE OR CHRONIC Status: Acute Current Visit: Yes (2) Kidney disease, chronic, stage III (GFR 30-59 ml/min) SNOMED Code(s): 277254031 ICD Code: N18.3 - CHRONIC KIDNEY DISEASE, STAGE 3 (MODERATE) Status: Acute Current Visit: Yes (3) Diabetes type 2, controlled SNOMED Code(s): 75111140 ICD Code: E11.9 - TYPE 2 DIABETES MELLITUS WITHOUT COMPLICATIONS Status: Acute Current Visit: Yes Qualifiers: Diabetes mellitus complication status: without complication Diabetes mellitus guard sergeant insulin use: with chcf use Qualified Code(s): E11.9 - Type 2 diabetes mellitus without complications; Z79.4 - wallpaper inspector (current) use of insulin; Z79.4 - prison (current) use of insulin; Z79.4 - prison ( current) use of insulin; Z79.4 - prison (current) use of insulin (4) Hyponatremia SNOMED Code(s): 60727010 ICD Code: E87.1 - HYPO-OSMOLALITY AND HYPONATREMIA Status: Acute Current Visit: Yes (5) Palliative care status SNOMED Code(s): 617344837 ICD Code: Z51.5 - ENCOUNTER FOR PALLIATIVE CARE Status: Acute Current Visit: Yes - Patient Instructions Diet: Diabetic Diet Activity: As Tolerated Driving: May Drive Today Showering/Bathing: May Shower Notify Provider of: Fever, Increased Pain, Nausea and/or Vomiting Other/Special Instructions: 1. Recheck with Dr. Beck in 7-10 days. 2. Renal ultrasound before he leaves which is ordered. Then discharge. - Discharge Plan Prescriptions/Med Rec: Ciprofloxacin HCl [Cipro] 500 mg PO BID #22 tablet Home Medications: Home Meds Ascorbate Calcium [Vitamin C] 500 mg PO DAILY 06/05/17 [History] Aspirin [Ecotrin] 325 mg PO DAILY 06/05/17 [History] Cholecalciferol (Vitamin D3) [Vitamin D3] 1,000 unit PO DAILY 06/05/17 [History] FLUoxetine [PROzac] 40 mg PO DAILY 06/05/17 [History] Ferrous Sulfate 325 mg PO BID 06/05/17 [History] Insulin Aspart [NovoLOG] 20 unit SUBCUT WITHBREAKFAST 06/05/17 [History] Insulin Aspart [NovoLOG] 30 units SUBCUT WITHDINNER 06/05/17 [History] Insulin Glargine,Hum.Rec.Anlog [Lantus Solostar] 60 units SUBCUT DAILY 06/05/17 [History] Metoprolol Succinate [Toprol XL] 25 mg PO DAILY 06/05/17 [History] Multivitamin [Daily Josee] 1 tab PO DAILY 06/05/17 [History] Oxybutynin [Oxybutynin ER] 10 mg PO DAILY 06/05/17 [History] atorvaSTATin [Lipitor] 40 mg PO DAILY 06/05/17 [History] buPROPion HCl [Wellbutrin Xl] 150 mg PO DAILY 06/05/17 [History] metFORMIN [Glucophage] 1,000 mg PO BID 06/05/17 [History] rOPINIRole [Requip] 2 mg PO BEDTIME 06/05/17 [History] Ciprofloxacin HCl [Cipro] 500 mg PO BID #22 tablet 06/08/17 [Rx] Patient Handouts: Pyelonephritis, Adult, [id number], Fall Prevention in Hospitals, Adult, Venous Thromboembolism Prevention - Discharge Summary/Plan Comment DC Time >30 min.: No - Patient Data Vitals - Most Recent: Last Vital Signs Temp 98.2 F 06/08/17 04:00 Pulse 63 06/08/17 08:26 Resp 18 06/08/17 04:00 BP 162/78 H 06/08/17 08:26 Pulse Ox 97 06/08/17 04:00 Weight - Most Recent: 306 lb 8 oz I&O - Last 24 hours: Intake & Output 06/07/17 06/08/17 06/08/17 22:59 06:59 14:59 Intake Total 200 100 Balance 200 100 Lab Results - Last 24 hrs: Laboratory Results - last 24 hr 06/07/17 06/07/17 06/07/17 Range/Units 11:07 17:26 21:42 POC Glucose 248 H 213 H 289 H (80-116) mg/dL 06/08/17 Range/Units 07:43 POC Glucose 190 H D (80-116) mg/dL [facility] Results - Last 24 hrs: Microbiology 06/05/17 13:30 Aerobic Blood Culture - Preliminary Blood - Venous - Lab Draw NO GROWTH AFTER 2 DAYS Anaerobic Blood Culture - Preliminary NO GROWTH AFTER 2 DAYS 06/05/17 13:25 Aerobic Blood Culture - Preliminary Blood - Venous NO GROWTH AFTER 2 DAYS Anaerobic Blood Culture - Preliminary NO GROWTH AFTER 2 DAYS Med Orders - Current: Current Medications Ascorbic Acid (Vitamin C) 500 mg PO DAILY [facility] Last Admin: 06/08/17 08:28 Dose: 500 mg Aspirin (Ecotrin) 325 mg PO DAILY [facility] Last Admin: 06/08/17 08:24 Dose: 325 mg Atorvastatin Calcium (Lipitor) 40 mg PO DAILY [facility] Last Admin: 06/08/17 08:25 Dose: 40 mg Bupropion HCl (Wellbutrin Xl) 150 mg PO DAILY [facility] Last Admin: 06/08/17 08:28 Dose: 150 mg Ceftriaxone Sodium (Rocephin) 1,000 mg IV Q24H [facility] Last Admin: 06/07/17 12:56 Dose: 1,000 mg Cholecalciferol (Vitamin D3) 1,000 units PO DAILY [facility] Last Admin: 06/08/17 08:28 Dose: 1,000 units Ferrous Sulfate (Ferrous Sulfate) 325 mg PO BID [facility] Last Admin: 06/08/17 08:24 Dose: 325 mg Fluoxetine HCl (Prozac) 40 mg PO DAILY [facility] Last Admin: 06/08/17 08:26 Dose: 40 mg Insulin Aspart (Novolog) 0 unit SUBCUT TIDMEALS [facility] PRN Reason: Protocol Last Admin: 06/08/17 08:16 Dose: 3 unit Insulin Detemir (Levemir) 60 unit SUBCUT DAILY [facility] Last Admin: 06/08/17 08:20 Dose: 60 unit Metoprolol Succinate (Toprol Xl) 25 mg PO DAILY [facility] Last Admin: 06/08/17 08:26 Dose: 25 mg Multivitamins/Minerals/Vitamin C (Tab-A-Josee) 1 tab PO DAILY [facility] Last Admin: 06/08/17 08:26 Dose: 1 tab Ondansetron HCl (Zofran) 4 mg IVPUSH Q4H PRN PRN Reason: Nausea/Vomiting Last Admin: 06/05/17 17:43 Dose: 4 mg Ondansetron HCl (Zofran Odt) 4 mg PO Q4H PRN PRN Reason: Nausea/Vomiting Oxybutynin Chloride (Oxybutynin Er) 10 mg PO DAILY [facility] Last Admin: 06/08/17 08:27 Dose: 10 mg Ropinirole HCl (Requip) 2 mg PO BEDTIME [facility] Last Admin: 06/07/17 21:00 Dose: 2 mg Sodium Chloride (Saline Flush) 10 ml FLUSH ASDIRECTED PRN PRN Reason: Keep Vein Open Last Admin: 06/07/17 12:56 Dose: 10 ml Discontinued Medications Sodium Chloride (Normal Saline) 1,000 mls @ 125 mls/hr IV ASDIRECTED [facility] Last Admin: 06/07/17 04:54 Dose: 125 mls/hr Insulin Aspart (Novolog) 0 unit SUBCUT ONETIME ONE Stop: 06/05/17 21:49 Last Admin: 06/05/17 22:11 Dose: 6 units Insulin Detemir (Levemir) 30 unit SUBCUT DAILY [facility] Last Admin: 06/06/17 08:52 Dose: 30 unit Insulin Detemir (Levemir) 30 unit SUBCUT ONETIME ONE Stop: 06/06/17 10:46 Last Admin: 06/06/17 11:42 Dose: 30 units Non-Formulary Medication (Insulin Glargine,Hum.Rec.Anlog [Lantus Solostar]) 60 units SUBCUT DAILY [facility] *Q Meaningful Use (DIS) - VTE *Q VTE Criteria *Q: - Stroke *Q Stroke Criteria *Q: - AMI *Q AMI Criteria *Q:
--- NOTE | 2017-06-08 10:53 | CR ---
INDICATION: Cough. CHEST: PA and lateral views of the chest were obtained 06/05/2017. No comparisons. The heart is normal in size and shape with post median sternotomy change noted. Multiple fractured sternal wires are noted. Flowing hyperostotic changes are noted in the mid thoracic spine, raising question of DISH. A definite active infiltrate or effusion was not identified. Somewhat prominent AP diameter, hyperaeration, and slightly flattened diaphragm leaf on the PA view, raise question of COPD, which should be correlated clinically. IMPRESSION: 1. No definite acute process. 2. Possible COPD - correlate clinically. 3. Possible DISH. 4. Evidence of previous median sternotomy with multiple fractured sternal wires. MTDD
--- NOTE | 2017-06-08 11:27 | US ---
INDICATION: Male patient with pyelonephritis. RENAL ULTRASOUND COMPLETE: Multiple ultrasonic images revealed the kidneys to measure 11.8 x 5.1 x 5.7 cm on the right, and 12.0 x 5.8 x 5.7 cm on the left. There is renal cortical thinning and some irregularity compatible with renal cortical scarring. Dromedary hump is noted at the left kidney, mid pole - a normal variant. Blood flow appears to be unremarkable bilaterally. No mass lesions, either solid or cystic were strongly suggested - no evidence of an abscess formation was seen. Incidental note of small calculi in the gallbladder is noted. IMPRESSION: 1. No evidence of renal abscess identified. 2. Renal cortical thinning and scarring. 3. Cholelithiasis. MTDD
== END 2017-06-08 11:30 | disposition home or self-care (01) | DRG 690 ==
LOC: FB.MS 12:23
PROVIDERS: ADMIT Family Medicine; ATTEND Family Medicine
DX: N12 Tubulo-interstitial nephritis, not specified as acute or chronic (principal); E87.1 Hypo-osmolality and hyponatremia; B96.20 Unspecified Escherichia coli [E. coli] as the cause of diseases classified elsewhere; E11.65 Type 2 diabetes mellitus with hyperglycemia; I12.9 Hypertensive chronic kidney disease with stage 1 through stage 4 chronic kidney disease, or unspecified chronic kidney disease; N18.3 Chronic kidney disease, stage 3 (moderate); Z79.4 Long term (current) use of insulin; E11.22 Type 2 diabetes mellitus with diabetic chronic kidney disease; Z79.2 Long term (current) use of antibiotics; Z95.1 Presence of aortocoronary bypass graft; Z87.440 Personal history of urinary (tract) infections; Z16.11 Resistance to penicillins; Z79.82 Long term (current) use of aspirin; Z51.5 Encounter for palliative care
CPT/HCPCS: 36415; 71046; 76770; 80048; 80053; 82962; 85025; 87040; A9270-GY; J0696; J2405; J7040; J7050

== ENCOUNTER 2019-01-02 21:35 | Inpatient (IN) | payer MEDICARE, BC ==
--- NOTE | 2019-01-02 21:52 | EDM.PDOC ---
ED HPI GENERAL MEDICAL PROBLEM - General Time Seen by Provider: 01/02/19 21:51 Source of Information: Reports: Patient History Limitations: Reports: No Limitations - History of Present Illness INITIAL COMMENTS - FREE TEXT/NARRATIVE: 73-year-old male who reports onset of malaise, chills, subjective fever, body aches and frequency with urination beginning midday today. He has had no nausea or vomiting. He is aching all over and feels very shaky and weak now. The symptoms have been progressive through the day. He rates the pain in his body as a 3/10. He also has some left mid back pain that is also aching and what he would rated as a 3/10. He has had decreased appetite today and some decreased by mouth intake. He has been urinating frequent, small amounts. No reported confusion. No syncope or presyncope. He just feels weak all over and shaky and this has been progressive through the afternoon. He had a pacemaker placed in mid October and that has been going well with no redness or erythema in the pacemaker site. It appears to be well healed according to him. There are no other associated signs or symptoms. There are no other modifying factors. 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: Reports: Other (see below) (Nothing) - Related Data Allergies Allergy/AdvReac Type Severity Reaction Status Date / Time No Known Allergies Allergy Verified 01/02/19 23:07 Home Meds: Home Meds Ascorbate Calcium [Vitamin C] 500 mg PO DAILY 06/05/17 [History] Aspirin [Ecotrin EC] 325 mg PO DAILY 06/05/17 [History] Cholecalciferol (Vitamin D3) [Vitamin D3] 1,000 unit PO DAILY 06/05/17 [History] FLUoxetine [PROzac] 40 mg PO DAILY 06/05/17 [History] Ferrous Sulfate 325 mg PO BID 06/05/17 [History] Insulin Aspart [NovoLOG] 20 unit SUBCUT WITHBREAKFAST 06/05/17 [History] Insulin Aspart [NovoLOG] 30 units SUBCUT WITHDINNER 06/05/17 [History] Insulin Glargine,Hum.Rec.Anlog [Lantus Solostar] 60 units SUBCUT DAILY 06/05/17 [History] Multivitamin [Daily Josee] 1 tab PO DAILY 06/05/17 [History] Oxybutynin [Oxybutynin ER] 10 mg PO DAILY 06/05/17 [History] atorvaSTATin [Lipitor] 40 mg PO DAILY 06/05/17 [History] buPROPion HCl [Wellbutrin Xl] 150 mg PO DAILY 06/05/17 [History] metFORMIN [Glucophage] 1,000 mg PO BID 06/05/17 [History] rOPINIRole [Requip] 2 mg PO BEDTIME 06/05/17 [History] Past Medical History Cardiovascular History: Reports: Bypass, CAD, High Cholesterol, Hypertension Genitourinary History: Reports: Pyelonephritis, UTI, Recurrent Endocrine/Metabolic History: Reports: Diabetes, Type II - Past Surgical History Cardiovascular Surgical History: Reports: Coronary Artery Bypass, Pacer GI Surgical History: Reports: Other (See Below) (Hemorrhoidectomy) Male Surgical History: Reports: Circumcision Musculoskeletal Surgical History: Reports: Hip Replacement (Bilateral), Knee Replacement (Bilateral) Social & Family History - Tobacco Use Smoking Status *Q: Unknown Ever Smoked (Nonsmoker) - Alcohol Use Alcohol Use History: No - Living Situation & Occupation Living situation: Reports: (He is here with his and his daughter.) , with Family 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[employer]) ED ROS GENERAL - Review of Systems Review Of Systems: See Below Constitutional: Reports: Fever, Chills, Malaise, Weakness HEENT: Reports: No Symptoms Respiratory: Reports: No Symptoms Cardiovascular: Reports: No Symptoms GI/Abdominal: Reports: No Symptoms : Reports: Frequency Musculoskeletal: Reports: Back Pain (Left mid back pain), Other (Diffuse body aches) Skin: Reports: No Symptoms Neurological: Reports: No Symptoms Hematologic/Lymphatic: Reports: No Symptoms Immunologic: Reports: No Symptoms ED EXAM, GENERAL - Physical Exam Exam: See Below Exam Limited By: No Limitations General Appearance: Alert, WD/WN, Mild Distress, Other (He is febrile) Eye Exam: Bilateral Eye: Abnormal EOM, Abnormal Pupil Ears: Normal External Exam, Hearing Grossly Normal Ear Exam: Bilateral Ear: Auricle Normal Nose: Normal Inspection, Normal Mucosa, No Blood Throat/Mouth: Normal Voice, No Airway Compromise, Other (Dry mucous membranes) Head: Atraumatic, Normocephalic Neck: Normal Inspection, Supple, Non-Tender, Full Range of Motion Respiratory/Chest: No Respiratory Distress, Lungs Clear, Normal Breath Sounds, No Accessory Muscle Use, Chest Non-Tender Cardiovascular: Normal Peripheral Pulses, Regular Rate, Rhythm, No JVD, No Murmur Peripheral Pulses: 2+: Radial (L), Radial (R), Dorsalis Pedis (L), Dorsalis Pedis (R) GI/Abdominal: Normal Bowel Sounds, Soft, Non-Tender, No Mass Back Exam: Normal Inspection, CVA Tenderness (L) Extremities: Normal Inspection, Normal Range of Motion, Normal Capillary Refill , Pedal Edema (Trace to 1+ bilaterally) Neurological: Alert, Oriented, CN II-XII Intact, Normal Cognition, No Motor/ Sensory Deficits Skin Exam: Warm, Dry, Intact, Normal Color, No Rash Course - Vital Signs Last Recorded V/S: Last Vital Signs Temp 38.1 C 01/02/19 23:25 Pulse 91 01/02/19 23:25 Resp 17 01/02/19 23:25 BP 153/72 H 01/02/19 23:25 Pulse Ox 97 01/02/19 23:25 - Orders/Labs/Meds Orders: Active Orders 24 hr Category Date Time Status Admission Status [Patient Status] [ADT] Routine ADT 01/02/19 23:12 Active Bladder Scan [RC] ONETIME Care 01/02/19 22:01 Active CULTURE BLOOD [BC] Urgent Lab 01/02/19 22:25 Received CULTURE BLOOD [BC] Urgent Lab 01/02/19 22:35 Received CULTURE URINE [RM] Stat Lab 01/02/19 21:38 Received Sodium Chloride 0.9% [Normal Saline] 1,000 ml Med 01/02/19 22:15 Active IV ASDIRECTED cefTRIAXone [Rocephin] 1 gm Med 01/02/19 23:15 Active Sodium Chloride 0.9% [Normal Saline] 50 ml IV Q24H Blood Culture x2 Reflex Set [OM.PC] Urgent Oth 01/02/19 22:01 Ordered Medication Orders Sodium Chloride (Normal Saline) 1,000 mls @ 999 mls/hr IV ASDIRECTED CODY Last Admin: 01/02/19 22:51 Dose: 999 mls/hr Ceftriaxone Sodium 1 gm/ (Sodium Chloride) 50 mls @ 200 mls/hr IV Q24H CODY Last Admin: 01/02/19 23:26 Dose: 200 mls/hr Labs: Laboratory Tests 01/02/19 01/02/19 01/02/19 Range/Units 21:38 22:25 22:25 WBC 14.0 H (4.5-12.0) X10-3/uL RBC 4.26 L (4.30-5.75) x10(6)uL Hgb 13.3 L (13.5-17.8) g/dL Hct 38.8 (30.0-51.3) % MCV 91.1 (80-96) fL MCH 31.2 (27.7-33.6) pg MCHC 34.2 (32.2-35.4) g/dL RDW 13.2 (11.5-15.5) % Plt Count 225 (125-369) X10(3)uL MPV 8.7 (7.4-10.4) fL Add Manual Diff Yes Neutrophils % (Manual) 83 H (46-82) % Band Neutrophils % 1 (0-6) % Lymphocytes % (Manual) 5 L (13-37) % Monocytes % (Manual) 10 (4-12) % Basophils % (Manual) 1 (0-2) % Sodium 137 (135-145) mmol/L Potassium 4.2 (3.5-5.3) mmol/L Chloride 102 (100-110) mmol/L Carbon Dioxide 24 (21-32) mmol/L BUN 26 H (7-18) mg/dL Creatinine 1.7 H (0.70-1.30) mg/dL Est Cr Clr Drug Dosing 43.08 mL/min Estimated GFR (MDRD) 40 L (>60) BUN/Creatinine Ratio 15.3 (9-20) Glucose 212 H (80-116) mg/dL Lactic Acid (0.4-2.2) mmol/L Calcium 8.7 (8.6-10.2) mg/dL Magnesium 1.5 L (1.8-2.5) mg/dL Total Bilirubin 0.5 (0.1-1.3) mg/dL AST 16 D (5-25) IU/L ALT 21 D (12-36) U/L Alkaline Phosphatase 119 H (56-112) IU/L C-Reactive Protein (0.5-0.9) mg/dL Total Protein 7.4 (6.0-8.0) g/dL Albumin 3.1 L (3.2-4.6) g/dL Globulin 4.3 g/dL Albumin/Globulin Ratio 0.7 Urine Color Yellow (YELLOW) Urine Appearance Cloudy (CLEAR) Urine pH 5.0 (5.0-6.5) Ur Specific [place] 1.015 (1.010-1.025) Urine Protein 100 H (NEGATIVE) mg/dL Urine Glucose (UA) 250 H (NORMAL) mg/dL Urine Ketones 15 H (NEGATIVE) mg/dL Urine Occult Blood Moderate H (NEGATIVE) Urine Nitrite Positive H (NEGATIVE) Urine Bilirubin Negative (NEGATIVE) Urine Urobilinogen Normal (NEGATIVE) mg/dL Ur Leukocyte Esterase Large H (NEGATIVE) Urine RBC 5-10 H (0-5) Urine WBC 75-100 H (0-5) Ur Squamous Epith Cells Few H (NS,R,O) Urine Bacteria Many H (NS) 01/02/19 01/02/19 Range/Units 22:25 22:25 WBC (4.5-12.0) X10-3/uL RBC (4.30-5.75) x10(6)uL Hgb (13.5-17.8) g/dL Hct (30.0-51.3) % MCV (80-96) fL MCH (27.7-33.6) pg MCHC (32.2-35.4) g/dL RDW (11.5-15.5) % Plt Count (125-369) X10(3)uL MPV (7.4-10.4) fL Add Manual Diff Neutrophils % (Manual) (46-82) % Band Neutrophils % (0-6) % Lymphocytes % (Manual) (13-37) % Monocytes % (Manual) (4-12) % Basophils % (Manual) (0-2) % Sodium (135-145) mmol/L Potassium (3.5-5.3) mmol/L Chloride (100-110) mmol/L Carbon Dioxide (21-32) mmol/L BUN (7-18) mg/dL Creatinine (0.70-1.30) mg/dL Est Cr Clr Drug Dosing mL/min Estimated GFR (MDRD) (>60) BUN/Creatinine Ratio (9-20) Glucose (80-116) mg/dL Lactic Acid 1.8 (0.4-2.2) mmol/L Calcium (8.6-10.2) mg/dL Magnesium (1.8-2.5) mg/dL Total Bilirubin (0.1-1.3) mg/dL AST (5-25) IU/L ALT (12-36) U/L Alkaline Phosphatase (56-112) IU/L C-Reactive Protein 2.8 H* (0.5-0.9) mg/dL Total Protein (6.0-8.0) g/dL Albumin (3.2-4.6) g/dL Globulin g/dL Albumin/Globulin Ratio Urine Color (YELLOW) Urine Appearance (CLEAR) Urine pH (5.0-6.5) Ur Specific [place] (1.010-1.025) Urine Protein (NEGATIVE) mg/dL Urine Glucose (UA) (NORMAL) mg/dL Urine Ketones (NEGATIVE) mg/dL Urine Occult Blood (NEGATIVE) Urine Nitrite (NEGATIVE) Urine Bilirubin (NEGATIVE) Urine Urobilinogen (NEGATIVE) mg/dL Ur Leukocyte Esterase (NEGATIVE) Urine RBC (0-5) Urine WBC (0-5) Ur Squamous Epith Cells (NS,R,O) Urine Bacteria (NS) Meds: Medications Generic Name Dose Route Start Last Admin Trade Name Freq PRN Reason Stop Dose Admin Sodium Chloride 1,000 mls @ 999 mls/hr 01/02/19 22:15 01/02/19 22:51 Normal Saline IV 999 mls/hr ASDIRECTED CODY Administration Ceftriaxone Sodium 1 gm/ 50 mls @ 200 mls/hr 01/02/19 23:15 01/02/19 23:26 Sodium Chloride IV 200 mls/hr Q24H CODY Administration Discontinued Medications Generic Name Dose Route Start Last Admin Trade Name Freq PRN Reason Stop Dose Admin Acetaminophen 1,000 mg 01/02/19 22:05 01/02/19 22:51 Tylenol Extra Strength PO 01/02/19 22:06 1,000 mg ONETIME ONE Administration Magnesium Sulfate 2 gm/ Premix 50 mls @ 150 mls/hr 01/02/19 23:11 IV 01/02/19 23:30 ONETIME ONE - Re-Assessments/Exams Free Text/Narrative Re-Assessment/Exam: 01/02/19 23:15: Patient with elevated white blood cell count, elevated CRP and minutes of a urinary tract infection. With the patient's fever and elevated white blood cell count, he meets Sirs criteria and has early sepsis. His lactic acid was normal. His blood sugars are somewhat out of control as well. His creatinine is 1.7 which is somewhat elevated from previous. He will need admission with IV antibiotic therapy and IV fluid therapy. This plan of care cannot be safely accomplished as an outpatient. He is at risk for significant morbidity and mortality if this were attempted to be treated as an outpatient. He will need an inpatient hospitalization with a greater than 2 midnight stay. I discussed this with the patient and with his family and they are in agreement with the plan for admission. The patient's magnesium was also somewhat low and I have ordered magnesium 2 g to be given IV. Blood cultures 2 been obtained and a urine culture is been obtained. I will continue IV fluid hydration and will treat him with Rocephin [address] I will place admission orders and Dr. Melgoza will assume care of the patient at 7 AM on 01/03/2019. Departure - Departure Time of Disposition: 23:20 Disposition: Admitted As Inpatient 65 Condition: Fair (Stable) Clinical Impression: Pyelonephritis, SIRS (systemic inflammatory response syndrome), Dehydration, Acute kidney injury Diabetes mellitus type 2, uncontrolled Qualifiers: Glycemic state: with hyperglycemia Qualified Code(s): E11.65 - Type 2 diabetes mellitus with hyperglycemia - Discharge Information - My Orders Last 24 Hours: My Active Orders 01/02/19 21:38 CULTURE URINE [RM] Stat 01/02/19 22:01 Bladder Scan [RC] ONETIME Blood Culture x2 Reflex Set [OM.PC] Urgent 01/02/19 22:15 Sodium Chloride 0.9% [Normal Saline] 1,000 ml IV ASDIRECTED 01/02/19 22:25 CULTURE BLOOD [BC] Urgent 01/02/19 22:35 CULTURE BLOOD [BC] Urgent 01/02/19 23:12 Admission Status [Patient Status] [ADT] Routine 01/02/19 23:15 cefTRIAXone [Rocephin] 1 gm Sodium Chloride 0.9% [Normal Saline] 50 ml IV Q24H - Assessment/Plan Last 24 Hours: My Active Orders 01/02/19 21:38 CULTURE URINE [RM] Stat 01/02/19 22:01 Bladder Scan [RC] ONETIME Blood Culture x2 Reflex Set [OM.PC] Urgent 01/02/19 22:15 Sodium Chloride 0.9% [Normal Saline] 1,000 ml IV ASDIRECTED 01/02/19 22:25 CULTURE BLOOD [BC] Urgent 01/02/19 22:35 CULTURE BLOOD [BC] Urgent 01/02/19 23:12 Admission Status [Patient Status] [ADT] Routine 01/02/19 23:15 cefTRIAXone [Rocephin] 1 gm Sodium Chloride 0.9% [Normal Saline] 50 ml IV Q24H
[2019-01-02] MEDS ORDERED: Acetaminophen 500 MG Tab PO ONE (22:05)
[2019-01-02] MEDS ORDERED: Sodium Chloride 0.9% 1,000 ML IV SCH (22:15)
[2019-01-02] MEDS ORDERED: Magnesium Sulfate/Water 2 GM in Premix Bag 1 BAG IV ONE (23:11)
[2019-01-02] MEDS: cefTRIAXone 1 GM in Sodium Chloride 0.9% 50 ML IV SCH (23:26)
[2019-01-02] MEDS ORDERED: Ondansetron 4 MG/2 ML SDV IV PRN (23:48)
[2019-01-02] MEDS ORDERED: Acetaminophen 325 MG Tab PO PRN (23:48)
[2019-01-02] MEDS ORDERED: Ondansetron 4 MG Tab.DIS PO PRN (23:48)
[2019-01-03] MEDS: Sodium Chloride 0.9% 1,000 ML IV SCH ×2 (03:59→14:29)
[2019-01-03] MEDS: Insulin Lispro 100 Unit/ML 3 ML KwikPen SUBCUT SCH ×4 (06:45→20:38)
[2019-01-03] MEDS ORDERED: INSULIN ASPART 20 UNIT SUBCUT SCH (08:00)
--- NOTE | 2019-01-03 09:03 | PCM.HP.2 ---
H&P History of Present Illness - General Date of Service: 01/03/19 Admit Problem/Dx: Admission Diagnosis/Problem Admission Diagnosis/Problem Pyelonephritis Source of Information: Patient, EMS Notes Reviewed History Limitations: Reports: No Limitations - History of Present Illness Initial Comments - Free Text/Narative: This is a 73-year-old male patient this had 2-3 day history of body aches, urinary frequency, dysuria, malaise, fevers, chills and thoracic back pain across the whole back. Patient states he has had bladder infections in the past. He also has a history of a kidney stone. He denies runny nose, sore throat , cough, diarrhea, abdominal pain at this time. - Related Data Allergies/Adverse Reactions: Allergies Allergy/AdvReac Type Severity Reaction Status Date / Time No Known Allergies Allergy Verified 01/02/19 23:07 Home Medications: Home Meds Ascorbate Calcium [Vitamin C] 500 mg PO DAILY 06/05/17 [History] Aspirin [Ecotrin EC] 325 mg PO DAILY 06/05/17 [History] Cholecalciferol (Vitamin D3) [Vitamin D3] 1,000 unit PO DAILY 06/05/17 [History] FLUoxetine [PROzac] 40 mg PO DAILY 06/05/17 [History] Ferrous Sulfate 325 mg PO BID 06/05/17 [History] Insulin Aspart [NovoLOG] 20 unit SUBCUT WITHBREAKFAST 06/05/17 [History] Insulin Aspart [NovoLOG] 30 units SUBCUT WITHDINNER 06/05/17 [History] Insulin Glargine,Hum.Rec.Anlog [Lantus Solostar] 60 units SUBCUT DAILY 06/05/17 [History] Multivitamin [Daily Josee] 1 tab PO DAILY 06/05/17 [History] Oxybutynin [Oxybutynin ER] 10 mg PO DAILY 06/05/17 [History] atorvaSTATin [Lipitor] 40 mg PO DAILY 06/05/17 [History] buPROPion HCl [Wellbutrin Xl] 150 mg PO DAILY 06/05/17 [History] metFORMIN [Glucophage] 1,000 mg PO BID 06/05/17 [History] rOPINIRole [Requip] 2 mg PO BEDTIME 06/05/17 [History] Past Medical History HEENT History: Reports: Cataract Cardiovascular History: Reports: Bypass, CAD, High Cholesterol, Hypertension Genitourinary History: Reports: Pyelonephritis, UTI, Recurrent Musculoskeletal History: Reports: None Other Musculoskeletal History: Shakiness Endocrine/Metabolic History: Reports: Diabetes, Type II - Past Surgical History Cardiovascular Surgical History: Reports: Coronary Artery Bypass, Pacer GI Surgical History: Reports: Other (See Below) (Hemorrhoidectomy) Male Surgical History: Reports: Circumcision Musculoskeletal Surgical History: Reports: Hip Replacement (Bilateral), Knee Replacement (Bilateral) Social & Family History - Family History Family Medical History: Noncontributory Hematologic: Reports: Other (See Below) Other Hematologic Family History: leukemia Oncologic: Reports: Esophageal, Lung, Ovarian - Tobacco Use Smoking Status *Q: Unknown Ever Smoked (Nonsmoker) Second Hand Smoke Exposure: No - Caffeine Use Caffeine Use: Reports: Coffee - Recreational Drug Use Recreational Drug Use: No - Living Situation & Occupation Living situation: Reports: (He is here with his and his daughter.) , with Family 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 Denies: Hematuria Musculoskeletal: Reports: Back Pain Skin: Reports: No Symptoms Psychiatric: Reports: No Symptoms Neurological: Reports: No Symptoms Hematologic/Lymphatic: Reports: No Symptoms Immunologic: Reports: No Symptoms Exam - Exam Exam: See Below - Vital Signs Vital Signs: Last Vital Signs Temp 98.4 F 01/03/19 04:00 Pulse 84 01/03/19 04:00 Resp 18 01/03/19 04:00 BP 148/80 H 01/03/19 04:00 Pulse Ox 96 01/03/19 04:00 Weight: 279 lb - Exam General: Alert, Oriented, Cooperative HEENT: Hearing Intact, Mucosa Moist & [place], Posterior Pharynx Clear, TMs Clear Neck: Supple, Trachea Midline Lungs: Clear to Auscultation, Normal Respiratory Effort Cardiovascular: Regular Rate, Regular Rhythm. No: Systolic Murmur, Diastolic Murmur GI/Abdominal Exam: Normal Bowel Sounds, Soft, Non-Tender, No Organomegaly, No Distention, No Abnormal Bruit, No Mass Back Exam: Normal Inspection Extremities: Normal Inspection, Non-Tender, No Pedal Edema Skin: Warm, Dry, Intact Neurological: Normal Speech, Normal Tone Neuro Extensive - Mental Status: Alert, Oriented x3, Normal Mood/Affect, Normal Cognition Neuro Extensive - Motor, Sensory, Reflexes: Normal Gait Psychiatric: Alert, Normal Affect, Normal Mood - Patient Data Lab Results Last 24 hrs: Laboratory Results - last 24 hr 01/02/19 01/02/19 01/02/19 Range/Units 21:38 22:25 22:25 WBC 14.0 H (4.5-12.0) X10-3/uL RBC 4.26 L (4.30-5.75) x10(6)uL Hgb 13.3 L (13.5-17.8) g/dL Hct 38.8 (30.0-51.3) % MCV 91.1 (80-96) fL MCH 31.2 (27.7-33.6) pg MCHC 34.2 (32.2-35.4) g/dL RDW 13.2 (11.5-15.5) % Plt Count 225 (125-369) X10(3)uL MPV 8.7 (7.4-10.4) fL Neut % (Auto) (46-82) % Lymph % (Auto) (13-37) % [place] % (Auto) (4-12) % Eos % (Auto) (1.0-5.0) % Baso % (Auto) (0-2) % Neut # (Auto) (1.6-8.3) # Lymph # (Auto) (0.6-5.0) # [place] # (Auto) (0.0-1.3) # Eos # (Auto) (0.0-0.8) # Baso # (Auto) (0.0-0.2) # Add Manual Diff Yes Neutrophils % (Manual) 83 H (46-82) % Band Neutrophils % 1 (0-6) % Lymphocytes % (Manual) 5 L (13-37) % Monocytes % (Manual) 10 (4-12) % Basophils % (Manual) 1 (0-2) % Sodium 137 (135-145) mmol/L Potassium 4.2 (3.5-5.3) mmol/L Chloride 102 (100-110) mmol/L Carbon Dioxide 24 (21-32) mmol/L BUN 26 H (7-18) mg/dL Creatinine 1.7 H (0.70-1.30) mg/dL Est Cr Clr Drug Dosing 43.08 mL/min Estimated GFR (MDRD) 40 L (>60) BUN/Creatinine Ratio 15.3 (9-20) Glucose 212 H (80-116) mg/dL POC Glucose (80-116) mg/dL Lactic Acid (0.4-2.2) mmol/L Calcium 8.7 (8.6-10.2) mg/dL Magnesium 1.5 L (1.8-2.5) mg/dL Total Bilirubin 0.5 (0.1-1.3) mg/dL AST 16 D (5-25) IU/L ALT 21 D (12-36) U/L Alkaline Phosphatase 119 H (56-112) IU/L C-Reactive Protein (0.5-0.9) mg/dL Total Protein 7.4 (6.0-8.0) g/dL Albumin 3.1 L (3.2-4.6) g/dL Globulin 4.3 g/dL Albumin/Globulin Ratio 0.7 Urine Color Yellow (YELLOW) Urine Appearance Cloudy (CLEAR) Urine pH 5.0 (5.0-6.5) Ur Specific [place] 1.015 (1.010-1.025) Urine Protein 100 H (NEGATIVE) mg/dL Urine Glucose (UA) 250 H (NORMAL) mg/dL Urine Ketones 15 H (NEGATIVE) mg/dL Urine Occult Blood Moderate H (NEGATIVE) Urine Nitrite Positive H (NEGATIVE) Urine Bilirubin Negative (NEGATIVE) Urine Urobilinogen Normal (NEGATIVE) mg/dL Ur Leukocyte Esterase Large H (NEGATIVE) Urine RBC 5-10 H (0-5) Urine WBC 75-100 H (0-5) Ur Squamous Epith Cells Few H (NS,R,O) Urine Bacteria Many H (NS) 01/02/19 01/02/19 01/03/19 Range/Units 22:25 22:25 06:28 WBC 13.4 H (4.5-12.0) X10-3/uL RBC 4.24 L (4.30-5.75) x10(6)uL Hgb 13.1 L (13.5-17.8) g/dL Hct 38.9 (30.0-51.3) % MCV 91.8 (80-96) fL MCH 30.8 (27.7-33.6) pg MCHC 33.6 (32.2-35.4) g/dL RDW 12.8 (11.5-15.5) % Plt Count 222 (125-369) X10(3)uL MPV 8.5 (7.4-10.4) fL Neut % (Auto) 82.5 H (46-82) % Lymph % (Auto) 8.0 L (13-37) % [place] % (Auto) 6.5 (4-12) % Eos % (Auto) 1 (1.0-5.0) % Baso % (Auto) 2 (0-2) % Neut # (Auto) 11.0 H (1.6-8.3) # Lymph # (Auto) 1.1 (0.6-5.0) # [place] # (Auto) 0.9 (0.0-1.3) # Eos # (Auto) 0.2 (0.0-0.8) # Baso # (Auto) 0.2 (0.0-0.2) # Add Manual Diff Neutrophils % (Manual) (46-82) % Band Neutrophils % (0-6) % Lymphocytes % (Manual) (13-37) % Monocytes % (Manual) (4-12) % Basophils % (Manual) (0-2) % Sodium (135-145) mmol/L Potassium (3.5-5.3) mmol/L Chloride (100-110) mmol/L Carbon Dioxide (21-32) mmol/L BUN (7-18) mg/dL Creatinine (0.70-1.30) mg/dL Est Cr Clr Drug Dosing mL/min Estimated GFR (MDRD) (>60) BUN/Creatinine Ratio (9-20) Glucose (80-116) mg/dL POC Glucose (80-116) mg/dL Lactic Acid 1.8 (0.4-2.2) mmol/L Calcium (8.6-10.2) mg/dL Magnesium (1.8-2.5) mg/dL Total Bilirubin (0.1-1.3) mg/dL AST (5-25) IU/L ALT (12-36) U/L Alkaline Phosphatase (56-112) IU/L C-Reactive Protein 2.8 H* (0.5-0.9) mg/dL Total Protein (6.0-8.0) g/dL Albumin (3.2-4.6) g/dL Globulin g/dL Albumin/Globulin Ratio Urine Color (YELLOW) Urine Appearance (CLEAR) Urine pH (5.0-6.5) Ur Specific [place] (1.010-1.025) Urine Protein (NEGATIVE) mg/dL Urine Glucose (UA) (NORMAL) mg/dL Urine Ketones (NEGATIVE) mg/dL Urine Occult Blood (NEGATIVE) Urine Nitrite (NEGATIVE) Urine Bilirubin (NEGATIVE) Urine Urobilinogen (NEGATIVE) mg/dL Ur Leukocyte Esterase (NEGATIVE) Urine RBC (0-5) Urine WBC (0-5) Ur Squamous Epith Cells (NS,R,O) Urine Bacteria (NS) 01/03/19 01/03/19 Range/Units 06:28 06:43 WBC (4.5-12.0) X10-3/uL RBC (4.30-5.75) x10(6)uL Hgb (13.5-17.8) g/dL Hct (30.0-51.3) % MCV (80-96) fL MCH (27.7-33.6) pg MCHC (32.2-35.4) g/dL RDW (11.5-15.5) % Plt Count (125-369) X10(3)uL MPV (7.4-10.4) fL Neut % (Auto) (46-82) % Lymph % (Auto) (13-37) % [place] % (Auto) (4-12) % Eos % (Auto) (1.0-5.0) % Baso % (Auto) (0-2) % Neut # (Auto) (1.6-8.3) # Lymph # (Auto) (0.6-5.0) # [place] # (Auto) (0.0-1.3) # Eos # (Auto) (0.0-0.8) # Baso # (Auto) (0.0-0.2) # Add Manual Diff Neutrophils % (Manual) (46-82) % Band Neutrophils % (0-6) % Lymphocytes % (Manual) (13-37) % Monocytes % (Manual) (4-12) % Basophils % (Manual) (0-2) % Sodium 140 (135-145) mmol/L Potassium 3.8 (3.5-5.3) mmol/L Chloride 105 (100-110) mmol/L Carbon Dioxide 25 (21-32) mmol/L BUN 22 H (7-18) mg/dL Creatinine 1.5 H (0.70-1.30) mg/dL Est Cr Clr Drug Dosing 48.83 mL/min Estimated GFR (MDRD) 46 L (>60) BUN/Creatinine Ratio 14.7 (9-20) Glucose 135 H (80-116) mg/dL POC Glucose 141 H (80-116) mg/dL Lactic Acid (0.4-2.2) mmol/L Calcium 8.2 L (8.6-10.2) mg/dL Magnesium (1.8-2.5) mg/dL Total Bilirubin (0.1-1.3) mg/dL AST (5-25) IU/L ALT (12-36) U/L Alkaline Phosphatase (56-112) IU/L C-Reactive Protein (0.5-0.9) mg/dL Total Protein (6.0-8.0) g/dL Albumin (3.2-4.6) g/dL Globulin g/dL Albumin/Globulin Ratio Urine Color (YELLOW) Urine Appearance (CLEAR) Urine pH (5.0-6.5) Ur Specific [place] (1.010-1.025) Urine Protein (NEGATIVE) mg/dL Urine Glucose (UA) (NORMAL) mg/dL Urine Ketones (NEGATIVE) mg/dL Urine Occult Blood (NEGATIVE) Urine Nitrite (NEGATIVE) Urine Bilirubin (NEGATIVE) Urine Urobilinogen (NEGATIVE) mg/dL Ur Leukocyte Esterase (NEGATIVE) Urine RBC (0-5) Urine WBC (0-5) Ur Squamous Epith Cells (NS,R,O) Urine Bacteria (NS) Result Diagrams: 01/03/19 06:28 01/03/19 06:28 - Problem List (1) Pyelonephritis SNOMED Code(s): 77126398 ICD Code: N12 - TUBULO-INTERSTITIAL NEPHRITIS, NOT SPCF ACUTE OR CHRONIC Status: Acute Current Visit: Yes (2) Acute kidney injury SNOMED Code(s): 13144873, 22067913 ICD Code: N17.9 - ACUTE KIDNEY FAILURE, UNSPECIFIED Status: Acute Current Visit: Yes (3) Diabetes mellitus type 2, uncontrolled SNOMED Code(s): 891652567, 090973816 ICD Code: E11.65 - TYPE 2 DIABETES MELLITUS WITH HYPERGLYCEMIA Status: Acute Current Visit: Yes Qualifiers: Glycemic state: with hyperglycemia Qualified Code(s): E11.65 - Type 2 diabetes mellitus with hyperglycemia (4) Palliative care status SNOMED Code(s): 205482983 ICD Code: Z51.5 - ENCOUNTER FOR PALLIATIVE CARE Status: Acute Current Visit: No Problem List Initiated/Reviewed/Updated: Yes Orders Last 24hrs: Active Orders 24 hr Category Date Time Status Admission Status [Patient Status] [ADT] Routine ADT 01/02/19 23:12 Active Blood Glucose Check, Bedside [RC] QIDACANDBED Care 01/02/19 23:48 Active Height and Weight [RC] UPON Care 01/02/19 23:48 Active Intake and Output [RC] 06,14,22 Care 01/02/19 23:50 Active Oxygen Therapy [RC] PRN Care 01/02/19 23:49 Active Pulse Oximetry [RC] PRN Care 01/02/19 23:50 Active Up With Assistance [RC] ASDIRECTED Care 01/02/19 23:48 Active VTE/DVT Education [RC] Per Unit Routine Care 01/02/19 23:49 Active Vital Signs [RC] 00,04,08,12,16,20 Care 01/02/19 23:49 Active Consistent Carbohydrate Diet [DIET] Diet 01/02/19 Dinner Active CULTURE BLOOD [BC] Urgent Lab 01/02/19 22:25 Received CULTURE BLOOD [BC] Urgent Lab 01/02/19 22:35 Received CULTURE URINE [RM] Stat Lab 01/02/19 21:38 Received Acetaminophen [Tylenol] Med 01/02/19 23:48 Active 650 mg PO Q4H PRN Insulin Lispro [HumaLOG] Med 01/03/19 07:30 Active See Protocol SUBCUT QIDACANDBED Ondansetron [Zofran ODT] Med 01/02/19 23:48 Active 4 mg PO Q6H PRN Ondansetron [Zofran] Med 01/02/19 23:48 Active 4 mg IV Q6H PRN Sodium Chloride 0.9% [Normal Saline] 1,000 ml Med 01/02/19 23:45 Active IV ASDIRECTED cefTRIAXone [Rocephin] 1 gm Med 01/02/19 23:15 Active Sodium Chloride 0.9% [Normal Saline] 50 ml IV Q24H Resuscitation Status Routine Resus Stat 01/02/19 23:48 Ordered Medication Orders Acetaminophen (Tylenol) 650 mg PO Q4H PRN PRN Reason: Pain (Mild 1-3)/fever Ceftriaxone Sodium 1 gm/ (Sodium Chloride) 50 mls @ 200 mls/hr IV Q24H [facility] Last Admin: 01/02/19 23:26 Dose: 200 mls/hr Sodium Chloride (Normal Saline) 1,000 mls @ 125 mls/hr IV ASDIRECTED [facility] Last Admin: 01/03/19 03:59 Dose: 125 mls/hr Insulin Human Lispro (Humalog) 0 unit SUBCUT QIDACANDBED [facility]; Protocol Last Admin: 01/03/19 06:45 Dose: Not Given Ondansetron HCl (Zofran Odt) 4 mg PO Q6H PRN PRN Reason: nausea, able to take PO Ondansetron HCl (Zofran) 4 mg IV Q6H PRN PRN Reason: Nausea/Vomiting Assessment/Plan Comment:: 1. Admit to inpatient. 2. IV antibiotics with Rocephin. 3. Blood cultures are been ordered and if urine culture has not I will order. 4. Regular diet 5. IV fluids. 6. Patient wants to be a full code. 7. VTE prophylaxis with Lovenox and SCD 8. Up ad vinayak. 9. Continue home medications 10. Diabetic diet 11. Continue home diabetic regimen and check blood sugars twice a day. 12. Patient had a CAT scan with renal protocol October 2018 that showed a stable kidney stone and no hydronephrosis or obstruction. This was done at [place] - Mortality Measure Prognosis:: Good
[2019-01-03] MEDS ORDERED: Cholecalciferol (Vitamin D3) 25 MCG Tab PO SCH ×2 (10:00→18:00)
[2019-01-03] MEDS ORDERED: Multivitamin Tab PO SCH ×2 (10:00→18:00)
[2019-01-03] MEDS ORDERED: Ascorbic Acid 500 MG Tab PO SCH ×2 (10:00→18:00)
[2019-01-03] MEDS: amLODIPine 5 MG Tab PO SCH (10:46)
[2019-01-03] MEDS: Metoprolol Succinate 25 MG Tab.ER PO SCH (10:46)
[2019-01-03] MEDS: Oxybutynin 5 MG Tab.ER PO SCH (10:47)
[2019-01-03] MEDS: buPROPion 150 MG Tab.ER PO SCH (10:48)
[2019-01-03] MEDS: atorvaSTATin 40 MG Tab PO SCH (10:48)
[2019-01-03] MEDS: Aspirin 325 MG Tab.EC PO SCH (10:48)
[2019-01-03] MEDS: Ferrous Sulfate 325 MG Tab PO SCH ×2 (10:48→20:40)
[2019-01-03] MEDS: FLUoxetine 20 MG Cap PO SCH (10:48)
[2019-01-03] MEDS: metFORMIN 1,000 MG Tab PO SCH ×2 (10:48→18:32)
[2019-01-03] MEDS: Enoxaparin 40 MG/0.4 ML Syringe SUBCUT SCH (10:49)
[2019-01-03] MEDS: Insulin Glargine,Human Rec. Analog 100 Units/ML 3 ML Pen SUBCUT SCH (10:56)
[2019-01-03] MEDS: Furosemide 20 MG Tab PO SCH (14:36)
[2019-01-03] MEDS ORDERED: INSULIN ASPART 30 UNIT SUBCUT SCH (18:00)
[2019-01-03] MEDS ORDERED: rOPINIRole 1 MG Tab PO SCH (21:00)
[2019-01-03] MEDS: cefTRIAXone 1 GM in Sodium Chloride 0.9% 50 ML IV SCH (23:56)
[2019-01-03] MEDS ORDERED: Sodium Chloride 0.9% 10 ML Syringe FLUSH PRN (23:58)
[2019-01-04] MEDS: Insulin Lispro 100 Unit/ML 3 ML KwikPen SUBCUT SCH ×2 (07:04→11:26)
--- NOTE | 2019-01-04 07:41 | PCM.PN ---
- General Info Date of Service: 01/04/19 Admission Dx/Problem (Free Text): Patient is without complaints. He denies fevers, chills, abdominal pain, back pain, dysuria, pyuria, hematuria. - Patient Data Vitals - Most Recent: Last Vital Signs Temp 98.7 F 01/04/19 00:00 Pulse 67 01/04/19 00:00 Resp 16 01/04/19 00:00 BP 133/73 01/04/19 00:00 Pulse Ox 98 01/04/19 00:00 Weight - Most Recent: 279 lb I&O - Last 24 Hours: Intake & Output 01/03/19 01/04/19 01/04/19 22:59 06:59 14:59 Intake Total 484 39 Balance 484 39 Lab Results Last 24 Hours: Laboratory Results - last 24 hr 01/03/19 01/03/19 01/03/19 Range/Units 11:39 17:45 20:38 WBC (4.5-12.0) X10-3/uL RBC (4.30-5.75) x10(6)uL Hgb (13.5-17.8) g/dL Hct (30.0-51.3) % MCV (80-96) fL MCH (27.7-33.6) pg MCHC (32.2-35.4) g/dL RDW (11.5-15.5) % Plt Count (125-369) X10(3)uL MPV (7.4-10.4) fL Neut % (Auto) (46-82) % Lymph % (Auto) (13-37) % [place] % (Auto) (4-12) % Eos % (Auto) (1.0-5.0) % Baso % (Auto) (0-2) % Neut # (Auto) (1.6-8.3) # Lymph # (Auto) (0.6-5.0) # [place] # (Auto) (0.0-1.3) # Eos # (Auto) (0.0-0.8) # Baso # (Auto) (0.0-0.2) # Sodium (135-145) mmol/L Potassium (3.5-5.3) mmol/L Chloride (100-110) mmol/L Carbon Dioxide (21-32) mmol/L BUN (7-18) mg/dL Creatinine (0.70-1.30) mg/dL Est Cr Clr Drug Dosing mL/min Estimated GFR (MDRD) (>60) BUN/Creatinine Ratio (9-20) Glucose (80-116) mg/dL POC Glucose 185 H 128 H 200 H (80-116) mg/dL Calcium (8.6-10.2) mg/dL Total Bilirubin (0.1-1.3) mg/dL AST (5-25) IU/L ALT (12-36) U/L Alkaline Phosphatase (56-112) IU/L Total Protein (6.0-8.0) g/dL Albumin (3.2-4.6) g/dL Globulin g/dL Albumin/Globulin Ratio 01/04/19 01/04/19 Range/Units 06:25 06:25 WBC 12.5 H (4.5-12.0) X10-3/uL RBC 4.01 L (4.30-5.75) x10(6)uL Hgb 12.4 L (13.5-17.8) g/dL Hct 36.6 (30.0-51.3) % MCV 91.1 (80-96) fL MCH 31.0 (27.7-33.6) pg MCHC 34.0 (32.2-35.4) g/dL RDW 13.2 (11.5-15.5) % Plt Count 216 (125-369) X10(3)uL MPV 8.9 (7.4-10.4) fL Neut % (Auto) 79.9 (46-82) % Lymph % (Auto) 10.1 L (13-37) % [place] % (Auto) 7.3 (4-12) % Eos % (Auto) 2 (1.0-5.0) % Baso % (Auto) 1 (0-2) % Neut # (Auto) 9.9 H (1.6-8.3) # Lymph # (Auto) 1.3 (0.6-5.0) # [place] # (Auto) 0.9 (0.0-1.3) # Eos # (Auto) 0.3 (0.0-0.8) # Baso # (Auto) 0.1 (0.0-0.2) # Sodium 138 (135-145) mmol/L Potassium 4.0 (3.5-5.3) mmol/L Chloride 104 (100-110) mmol/L Carbon Dioxide 25 (21-32) mmol/L BUN 22 H (7-18) mg/dL Creatinine 1.4 H (0.70-1.30) mg/dL Est Cr Clr Drug Dosing 52.32 mL/min Estimated GFR (MDRD) 50 L (>60) BUN/Creatinine Ratio 15.7 (9-20) Glucose 107 (80-116) mg/dL POC Glucose (80-116) mg/dL Calcium 8.2 L (8.6-10.2) mg/dL Total Bilirubin 0.6 (0.1-1.3) mg/dL AST 16 (5-25) IU/L ALT 19 (12-36) U/L Alkaline Phosphatase 95 (56-112) IU/L Total Protein 6.7 (6.0-8.0) g/dL Albumin 2.6 L (3.2-4.6) g/dL Globulin 4.1 g/dL Albumin/Globulin Ratio 0.6 Darian Results Last 24 Hours: Microbiology 01/02/19 22:35 Aerobic Blood Culture - Preliminary Blood - Venous NO GROWTH AFTER 1 DAY Anaerobic Blood Culture - Preliminary NO GROWTH AFTER 1 DAY 01/02/19 22:25 Aerobic Blood Culture - Preliminary Blood - Venous - Lab Draw NO GROWTH AFTER 1 DAY Anaerobic Blood Culture - Preliminary NO GROWTH AFTER 1 DAY 01/02/19 21:38 Urine Culture - Preliminary Urine, Clean Catch Gram Negative Rods Med Orders - Current: Current Medications Acetaminophen (Tylenol) 650 mg PO Q4H PRN PRN Reason: Pain (Mild 1-3)/fever Amlodipine Besylate (Norvasc) 5 mg PO DAILY [facility] Last Admin: 01/03/19 10:46 Dose: 5 mg Ascorbic Acid (Vitamin C) 500 mg PO WITHDINNER [facility] Last Admin: 01/03/19 18:33 Dose: 500 mg Aspirin (Ecotrin) 325 mg PO DAILY [facility] Last Admin: 01/03/19 10:48 Dose: 325 mg Atorvastatin Calcium (Lipitor) 40 mg PO DAILY [facility] Last Admin: 01/03/19 10:48 Dose: 40 mg Bupropion HCl (Wellbutrin Xl) 150 mg PO DAILY [facility] Last Admin: 01/03/19 10:48 Dose: 150 mg Cholecalciferol (Vitamin D3) 25 mcg PO WITHDINNER [facility] Last Admin: 01/03/19 18:33 Dose: 25 mcg Enoxaparin Sodium (Lovenox) 40 mg SUBCUT Q24H [facility] Last Admin: 01/03/19 10:49 Dose: 40 mg Ferrous Sulfate (Ferrous Sulfate) 325 mg PO BID [facility] Last Admin: 01/03/19 20:40 Dose: 325 mg Fluoxetine HCl (Prozac) 40 mg PO DAILY [facility] Last Admin: 01/03/19 10:48 Dose: 40 mg Furosemide (Lasix) 10 mg PO DAILY [facility] Last Admin: 01/03/19 14:36 Dose: 10 mg Ceftriaxone Sodium 1 gm/ (Sodium Chloride) 50 mls @ 200 mls/hr IV Q24H [facility] Last Admin: 01/03/19 23:56 Dose: 200 mls/hr Insulin Glargine (Lantus Solostar) 60 units SUBCUT DAILY [facility] Last Admin: 01/03/19 10:56 Dose: 60 units Insulin Human Lispro (Humalog) 0 unit SUBCUT QIDACANDBED [facility]; Protocol Last Admin: 01/04/19 07:04 Dose: Not Given Metformin HCl (Glucophage) 1,000 mg PO BIDMEALS [facility] Last Admin: 01/03/19 18:32 Dose: 1,000 mg Metoprolol Succinate (Toprol Xl) 25 mg PO DAILY [facility] Last Admin: 01/03/19 10:46 Dose: 25 mg Multivitamins/Minerals/Vitamin C (Tab-A-Josee) 1 tab PO WITHDINNER [facility] Last Admin: 01/03/19 18:33 Dose: 1 tab Ondansetron HCl (Zofran Odt) 4 mg PO Q6H PRN PRN Reason: nausea, able to take PO Ondansetron HCl (Zofran) 4 mg IV Q6H PRN PRN Reason: Nausea/Vomiting Oxybutynin Chloride (Oxybutynin Er) 10 mg PO DAILY [facility] Last Admin: 01/03/19 10:47 Dose: 10 mg Ropinirole HCl (Requip) 2 mg PO BEDTIME [facility] Last Admin: 01/03/19 20:40 Dose: 2 mg Sodium Chloride (Saline Flush) 10 ml FLUSH ASDIRECTED PRN PRN Reason: Keep Vein Open Last Admin: 01/03/19 23:50 Dose: 10 ml Discontinued Medications Acetaminophen (Tylenol Extra Strength) 1,000 mg PO ONETIME ONE Stop: 01/02/19 22:06 Last Admin: 01/02/19 22:51 Dose: 1,000 mg Sodium Chloride (Normal Saline) 1,000 mls @ 999 mls/hr IV ASDIRECTED [facility] Last Infusion: 01/02/19 23:25 Dose: 125 mls/hr Magnesium Sulfate 2 gm/ Premix 50 mls @ 150 mls/hr IV ONETIME ONE Stop: 01/02/19 23:30 Last Admin: 01/03/19 00:21 Dose: 150 mls/hr Sodium Chloride (Normal Saline) 1,000 mls @ 70 mls/hr IV ASDIRECTED [facility] Last Admin: 01/03/19 14:29 Dose: 125 mls/hr - Exam General: Alert Lungs: Clear to Auscultation, Normal Respiratory Effort Cardiovascular: Regular Rate, Regular Rhythm, No Murmurs GI/Abdominal Exam: Normal Bowel Sounds, Soft, Non-Tender Back Exam: No: CVA Tenderness (R), CVA Tenderness (L) - Problem List & Annotations (1) Pyelonephritis SNOMED Code(s): 85068563 Code(s): N12 - TUBULO-INTERSTITIAL NEPHRITIS, NOT SPCF ACUTE OR CHRONIC Status: Acute Current Visit: Yes (2) Acute kidney injury SNOMED Code(s): 57347261, 30418690 Code(s): N17.9 - ACUTE KIDNEY FAILURE, UNSPECIFIED Status: Acute Current Visit: Yes (3) Diabetes mellitus type 2, uncontrolled SNOMED Code(s): 643667391, 650141892 Code(s): E11.65 - TYPE 2 DIABETES MELLITUS WITH HYPERGLYCEMIA Status: Acute Current Visit: Yes Qualifiers: Glycemic state: with hyperglycemia Qualified Code(s): E11.65 - Type 2 diabetes mellitus with hyperglycemia (4) Palliative care status SNOMED Code(s): 255176820 Code(s): Z51.5 - ENCOUNTER FOR PALLIATIVE CARE Status: Acute Current Visit: No - Problem List Review Problem List Initiated/Reviewed/Updated: Yes - My Orders Last 24 Hours: My Active Orders 01/03/19 09:00 Aspirin [Ecotrin] 325 mg PO DAILY FLUoxetine [PROzac] 40 mg PO DAILY Insulin Glarg,Human.Rec.Analog [LantUS Solostar] 60 units SUBCUT DAILY 01/03/19 09:04 SCD [Sequential Compression Device] [OM.PC] Routine 01/03/19 10:00 Ferrous Sulfate 325 mg PO BID Oxybutynin [Oxybutynin ER] 10 mg PO DAILY atorvaSTATin [Lipitor] 40 mg PO DAILY buPROPion [Wellbutrin XL] 150 mg PO DAILY metFORMIN [Glucophage] 1,000 mg PO BIDMEALS 01/03/19 10:30 Enoxaparin [Lovenox] 40 mg SUBCUT Q24H Metoprolol Succinate [Toprol XL] 25 mg PO DAILY amLODIPine [Norvasc] 5 mg PO DAILY 01/03/19 14:00 Furosemide [Lasix] 10 mg PO DAILY 01/03/19 17:11 Convert IV to Saline Lock [OM.PC] Routine 01/03/19 18:00 Ascorbic Acid [Vitamin C] 500 mg PO WITHDINNER Cholecalciferol (Vitamin D3) [Vitamin D3] 25 mcg PO WITHDINNER Multivitamins [Tab-A-Josee] 1 tab PO WITHDINNER 01/03/19 21:00 rOPINIRole [Requip] 2 mg PO BEDTIME 01/03/19 23:58 Sodium Chloride 0.9% [Saline Flush] 10 ml FLUSH ASDIRECTED PRN - Plan Plan:: 1. Patient grew gram-negative rods. Lab states they will have the identification and sensitivity this afternoon. If the bacteria sensitive to outpatient medications will be discharged suction as long as he doesn't get worse today. He is steadily improving. 2. Up ad vinayak.
[2019-01-04] MEDS: Ferrous Sulfate 325 MG Tab PO SCH (08:20)
[2019-01-04] MEDS: atorvaSTATin 40 MG Tab PO SCH (08:20)
[2019-01-04] MEDS: buPROPion 150 MG Tab.ER PO SCH (08:20)
[2019-01-04] MEDS: metFORMIN 1,000 MG Tab PO SCH (08:20)
[2019-01-04] MEDS: Oxybutynin 5 MG Tab.ER PO SCH (08:21)
[2019-01-04] MEDS: FLUoxetine 20 MG Cap PO SCH (08:21)
[2019-01-04] MEDS: Metoprolol Succinate 25 MG Tab.ER PO SCH (08:22)
[2019-01-04] MEDS: Furosemide 20 MG Tab PO SCH (08:22)
[2019-01-04] MEDS: Aspirin 325 MG Tab.EC PO SCH (08:23)
[2019-01-04] MEDS: amLODIPine 5 MG Tab PO SCH (08:23)
[2019-01-04] MEDS: Insulin Glargine,Human Rec. Analog 100 Units/ML 3 ML Pen SUBCUT SCH (08:24)
[2019-01-04] MEDS: Enoxaparin 40 MG/0.4 ML Syringe SUBCUT SCH (11:15)
--- NOTE | 2019-01-04 15:30 | PCM.SN ---
- Free Text/Narrative Note: Patient's urine culture showed E. coli sensitive to every antibiotic. We will send her home on Augmentin since he is mild kidney failure.
--- NOTE | 2019-01-04 15:33 | PCM.DCSUM1 ---
Discharge Summary - Hospital Course Free Text/Narrative:: Hospital course-patient was admitted and placed on IV fluids and Rocephin 1 g a day. The patient was much better and his white count was coming down. He was afebile without dysuria, pyuria, hematuria. Day of discharge is urine grew E. coli sensitive to everything. We'll discharge her home on Augmentin. The second day of hospitalization I stops IV was saline locked his IV. Blood sugars well controlled on his home meds and his creatinine was slightly elevated. Brief History: This is a 73-year-old male patient this had 2-3 day history of body aches, urinary frequency, dysuria, malaise, fevers, chills and thoracic back pain across the whole back. Patient states he has had bladder infections in the past. He also has a history of a kidney stone. He denies runny nose, sore throat, cough, diarrhea, abdominal pain at this time. Diagnosis: Stroke: No - Discharge Data Discharge Date: 01/04/19 Discharge Disposition: Home, Self-Care 01 Condition: Stable - Referral to Home Health Primary Care Physician: Edu Fraire MD - Discharge Diagnosis/Problem(s) (1) Pyelonephritis SNOMED Code(s): 64958623 ICD Code: N12 - TUBULO-INTERSTITIAL NEPHRITIS, NOT SPCF ACUTE OR CHRONIC Status: Acute Current Visit: Yes (2) Acute kidney injury SNOMED Code(s): 85523462, 47942234 ICD Code: N17.9 - ACUTE KIDNEY FAILURE, UNSPECIFIED Status: Acute Current Visit: Yes (3) Diabetes mellitus type 2, uncontrolled SNOMED Code(s): 099969526, 180306319 ICD Code: E11.65 - TYPE 2 DIABETES MELLITUS WITH HYPERGLYCEMIA Status: Acute Current Visit: Yes Qualifiers: Glycemic state: with hyperglycemia Qualified Code(s): E11.65 - Type 2 diabetes mellitus with hyperglycemia (4) Palliative care status SNOMED Code(s): 508161406 ICD Code: Z51.5 - ENCOUNTER FOR PALLIATIVE CARE Status: Acute Current Visit: No - Patient Instructions Diet: Diabetic Diet Activity: As Tolerated Driving: May Drive Today Showering/Bathing: May Shower Other/Special Instructions: 1. Recheck with Dr. Beck in 14 days with a UA. - Discharge Plan Prescriptions/Med Rec: Amoxicillin/Potassium Clav [Augmentin 500-125 Tablet] 1 each PO TID #30 tablet Home Medications: Home Meds Ascorbate Calcium [Vitamin C] 500 mg PO WITHDINNER 06/05/17 [History] Aspirin [Ecotrin EC] 325 mg PO DAILY 06/05/17 [History] Cholecalciferol (Vitamin D3) [Vitamin D3] 1,000 unit PO WITHDINNER 06/05/17 [ History] FLUoxetine [PROzac] 40 mg PO DAILY 06/05/17 [History] Ferrous Sulfate 325 mg PO BIDMEALS 06/05/17 [History] Insulin Glargine,Hum.Rec.Anlog [Lantus Solostar] 60 units SUBCUT DAILY 06/05/17 [History] Multivitamin [Daily Josee] 1 tab PO WITHDINNER 06/05/17 [History] Oxybutynin [Oxybutynin ER] 10 mg PO DAILY 06/05/17 [History] atorvaSTATin [Lipitor] 40 mg PO DAILY 06/05/17 [History] buPROPion HCl [Wellbutrin Xl] 150 mg PO DAILY 06/05/17 [History] metFORMIN [Glucophage] 1,000 mg PO BIDMEALS 06/05/17 [History] rOPINIRole [Requip] 2 mg PO BEDTIME 06/05/17 [History] Furosemide 10 mg PO DAILY 01/03/19 [History] Insulin Aspart [NovoLOG] 0 - 30 units SUBCUT WITHBREAKFAST PRN 01/03/19 [History ] Metoprolol Succinate [Toprol XL] 25 mg PO DAILY 01/03/19 [History] amLODIPine [Norvasc] 5 mg PO DAILY 01/03/19 [History] Amoxicillin/Potassium Clav [Augmentin 500-125 Tablet] 1 each PO TID #30 tablet 01/04/19 [Rx] Patient Handouts: Urinary Tract Infection, Adult, Fall Prevention in Hospitals , Adult, Venous Thromboembolism Prevention Forms: ED Department Discharge Referrals: Edu Fraire MD [Primary Care Provider] - - Discharge Summary/Plan Comment DC Time >30 min.: No - Patient Data Vitals - Most Recent: Last Vital Signs Temp 99.2 F 01/04/19 08:00 Pulse 70 01/04/19 08:22 Resp 14 01/04/19 08:00 BP 143/75 H 09/10/19 08:23 Pulse Ox 97 01/04/19 08:00 Weight - Most Recent: 279 lb I&O - Last 24 hours: Intake & Output 01/04/19 01/04/19 01/04/19 06:59 14:59 22:59 Intake Total 39 Balance 39 Lab Results - Last 24 hrs: Laboratory Results - last 24 hr 01/03/19 01/03/19 01/04/19 Range/Units 17:45 20:38 06:25 WBC 12.5 H (4.5-12.0) X10-3/uL RBC 4.01 L (4.30-5.75) x10(6)uL Hgb 12.4 L (13.5-17.8) g/dL Hct 36.6 (30.0-51.3) % MCV 91.1 (80-96) fL MCH 31.0 (27.7-33.6) pg MCHC 34.0 (32.2-35.4) g/dL RDW 13.2 (11.5-15.5) % Plt Count 216 (125-369) X10(3)uL MPV 8.9 (7.4-10.4) fL Neut % (Auto) 79.9 (46-82) % Lymph % (Auto) 10.1 L (13-37) % Mills % (Auto) 7.3 (4-12) % Eos % (Auto) 2 (1.0-5.0) % Baso % (Auto) 1 (0-2) % Neut # (Auto) 9.9 H (1.6-8.3) # Lymph # (Auto) 1.3 (0.6-5.0) # Mills # (Auto) 0.9 (0.0-1.3) # Eos # (Auto) 0.3 (0.0-0.8) # Baso # (Auto) 0.1 (0.0-0.2) # Sodium (135-145) mmol/L Potassium (3.5-5.3) mmol/L Chloride (100-110) mmol/L Carbon Dioxide (21-32) mmol/L BUN (7-18) mg/dL Creatinine (0.70-1.30) mg/dL Est Cr Clr Drug Dosing mL/min Estimated GFR (MDRD) (>60) BUN/Creatinine Ratio (9-20) Glucose (80-116) mg/dL POC Glucose 128 H 200 H (80-116) mg/dL Calcium (8.6-10.2) mg/dL Total Bilirubin (0.1-1.3) mg/dL AST (5-25) IU/L ALT (12-36) U/L Alkaline Phosphatase (56-112) IU/L Total Protein (6.0-8.0) g/dL Albumin (3.2-4.6) g/dL Globulin g/dL Albumin/Globulin Ratio 01/04/19 01/04/19 Range/Units 06:25 11:24 WBC (4.5-12.0) X10-3/uL RBC (4.30-5.75) x10(6)uL Hgb (13.5-17.8) g/dL Hct (30.0-51.3) % MCV (80-96) fL MCH (27.7-33.6) pg MCHC (32.2-35.4) g/dL RDW (11.5-15.5) % Plt Count (125-369) X10(3)uL MPV (7.4-10.4) fL Neut % (Auto) (46-82) % Lymph % (Auto) (13-37) % Mills % (Auto) (4-12) % Eos % (Auto) (1.0-5.0) % Baso % (Auto) (0-2) % Neut # (Auto) (1.6-8.3) # Lymph # (Auto) (0.6-5.0) # Mills # (Auto) (0.0-1.3) # Eos # (Auto) (0.0-0.8) # Baso # (Auto) (0.0-0.2) # Sodium 138 (135-145) mmol/L Potassium 4.0 (3.5-5.3) mmol/L Chloride 104 (100-110) mmol/L Carbon Dioxide 25 (21-32) mmol/L BUN 22 H (7-18) mg/dL Creatinine 1.4 H (0.70-1.30) mg/dL Est Cr Clr Drug Dosing 52.32 mL/min Estimated GFR (MDRD) 50 L (>60) BUN/Creatinine Ratio 15.7 (9-20) Glucose 107 (80-116) mg/dL POC Glucose 147 H (80-116) mg/dL Calcium 8.2 L (8.6-10.2) mg/dL Total Bilirubin 0.6 (0.1-1.3) mg/dL AST 16 (5-25) IU/L ALT 19 (12-36) U/L Alkaline Phosphatase 95 (56-112) IU/L Total Protein 6.7 (6.0-8.0) g/dL Albumin 2.6 L (3.2-4.6) g/dL Globulin 4.1 g/dL Albumin/Globulin Ratio 0.6 SYDNIE Results - Last 24 hrs: Microbiology 01/02/19 21:38 Urine Culture - Final Urine, Clean Catch Escherichia Coli 01/02/19 22:35 Aerobic Blood Culture - Preliminary Blood - Venous NO GROWTH AFTER 1 DAY Anaerobic Blood Culture - Preliminary NO GROWTH AFTER 1 DAY 01/02/19 22:25 Aerobic Blood Culture - Preliminary Blood - Venous - Lab Draw NO GROWTH AFTER 1 DAY Anaerobic Blood Culture - Preliminary NO GROWTH AFTER 1 DAY Med Orders - Current: Current Medications Acetaminophen (Tylenol) 650 mg PO Q4H PRN PRN Reason: Pain (Mild 1-3)/fever Amlodipine Besylate (Norvasc) 5 mg PO DAILY [facility] Last Admin: 01/04/19 08:23 Dose: 5 mg Ascorbic Acid (Vitamin C) 500 mg PO WITHDINNER [facility] Last Admin: 01/03/19 18:33 Dose: 500 mg Aspirin (Ecotrin) 325 mg PO DAILY [facility] Last Admin: 01/04/19 08:23 Dose: 325 mg Atorvastatin Calcium (Lipitor) 40 mg PO DAILY [facility] Last Admin: 01/04/19 08:20 Dose: 40 mg Bupropion HCl (Wellbutrin Xl) 150 mg PO DAILY [facility] Last Admin: 01/04/19 08:20 Dose: 150 mg Cholecalciferol (Vitamin D3) 25 mcg PO WITHDINNER [facility] Last Admin: 01/03/19 18:33 Dose: 25 mcg Enoxaparin Sodium (Lovenox) 40 mg SUBCUT Q24H [facility] Last Admin: 01/04/19 11:15 Dose: 40 mg Ferrous Sulfate (Ferrous Sulfate) 325 mg PO BID [facility] Last Admin: 01/04/19 08:20 Dose: 325 mg Fluoxetine HCl (Prozac) 40 mg PO DAILY [facility] Last Admin: 01/04/19 08:21 Dose: 40 mg Furosemide (Lasix) 10 mg PO DAILY [facility] Last Admin: 01/04/19 08:22 Dose: 10 mg Ceftriaxone Sodium 1 gm/ (Sodium Chloride) 50 mls @ 200 mls/hr IV Q24H [facility] Last Admin: 01/03/19 23:56 Dose: 200 mls/hr Insulin Glargine (Lantus Solostar) 60 units SUBCUT DAILY [facility] Last Admin: 01/04/19 08:24 Dose: 60 units Insulin Human Lispro (Humalog) 0 unit SUBCUT QIDACANDBED [facility]; Protocol Last Admin: 01/04/19 11:26 Dose: Not Given Metformin HCl (Glucophage) 1,000 mg PO BIDMEALS [facility] Last Admin: 01/04/19 08:20 Dose: 1,000 mg Metoprolol Succinate (Toprol Xl) 25 mg PO DAILY [facility] Last Admin: 01/04/19 08:22 Dose: 25 mg Multivitamins/Minerals/Vitamin C (Tab-A-Josee) 1 tab PO WITHDINNER [facility] Last Admin: 01/03/19 18:33 Dose: 1 tab Ondansetron HCl (Zofran Odt) 4 mg PO Q6H PRN PRN Reason: nausea, able to take PO Ondansetron HCl (Zofran) 4 mg IV Q6H PRN PRN Reason: Nausea/Vomiting Oxybutynin Chloride (Oxybutynin Er) 10 mg PO DAILY [facility] Last Admin: 01/04/19 08:21 Dose: 10 mg Ropinirole HCl (Requip) 2 mg PO BEDTIME [facility] Last Admin: 01/03/19 20:40 Dose: 2 mg Sodium Chloride (Saline Flush) 10 ml FLUSH ASDIRECTED PRN PRN Reason: Keep Vein Open Last Admin: 01/03/19 23:50 Dose: 10 ml Discontinued Medications Acetaminophen (Tylenol Extra Strength) 1,000 mg PO ONETIME ONE Stop: 01/02/19 22:06 Last Admin: 01/02/19 22:51 Dose: 1,000 mg Sodium Chloride (Normal Saline) 1,000 mls @ 999 mls/hr IV ASDIRECTED [facility] Last Infusion: 01/02/19 23:25 Dose: 125 mls/hr Magnesium Sulfate 2 gm/ Premix 50 mls @ 150 mls/hr IV ONETIME ONE Stop: 01/02/19 23:30 Last Admin: 01/03/19 00:21 Dose: 150 mls/hr Sodium Chloride (Normal Saline) 1,000 mls @ 70 mls/hr IV ASDIRECTED [facility] Last Admin: 01/03/19 14:29 Dose: 125 mls/hr
== END 2019-01-04 16:26 | disposition home or self-care (01) | DRG 690 ==
LOC: FB.ED 21:35 → FB.MS 23:15
PROVIDERS: ADMIT Emergency Medicine; ATTEND Family Medicine
DX: N12 Tubulo-interstitial nephritis, not specified as acute or chronic (principal); N17.9 Acute kidney failure, unspecified; B96.20 Unspecified Escherichia coli [E. coli] as the cause of diseases classified elsewhere; E86.0 Dehydration; R53.1 Weakness; E83.42 Hypomagnesemia; E11.65 Type 2 diabetes mellitus with hyperglycemia; Z51.5 Encounter for palliative care; I10 Essential (primary) hypertension; E78.00 Pure hypercholesterolemia, unspecified; H26.9 Unspecified cataract; I25.810 Atherosclerosis of coronary artery bypass graft(s) without angina pectoris; Z95.0 Presence of cardiac pacemaker; Z79.4 Long term (current) use of insulin; Z98.890 Other specified postprocedural states; Z79.84 Long term (current) use of oral hypoglycemic drugs; Z87.442 Personal history of urinary calculi; Z79.82 Long term (current) use of aspirin; Z79.899 Other long term (current) drug therapy; Z79.2 Long term (current) use of antibiotics
CPT/HCPCS: 36415; 51798; 80053; 81001; 83605; 83735; 85025; 86140; 87040 ×2; 87086; 87088; 87186; 96361; 99284; A9270; J7030; 80048; 82962; 96374; 99285; J0696; J1650; J1815; J1815-GY; J3475; J7050